=== PATIENT | male | born 1960 | race Caucasian/White ===

== ENCOUNTER 2017-12-30 20:02 | Emergency (ER) | payer MEDICAID ==
[~2017-12-30] VITALS: Ht 170.2 cm; Wt 93.0 kg
[2017-12-30 20:55] LABS: BASOPHILS ABSOLUTE AUTO 0.03 K/mm3 (0.00-0.23); BASOPHILS PERCENT AUTO 0 % (0-2); EOSINOPHILS ABSOLUTE AUTO 0.01 K/mm3 (0.00-0.68); EOSINOPHILS PERCENT AUTO 0 % (0-6); Hematocrit 46.7 % (37.0-53.0); Hemoglobin 16.2 g/dL (13.5-17.5); IMMATURE GRAN ABSOLUTE AUTO 0.04 K/mm3 (0.00-0.10); IMMATURE GRAN PERCENT AUTO 0 % (0-1); LYMPHOCYTES PERCENT AUTO 12 % (21-46); MONOCYTES ABSOLUTE AUTO 0.39 K/mm3 (0.16-1.47); MONOCYTES PERCENT AUTO 3 % (4-13); Mean Corpuscular HGB 32.3 pg (26.0-34.0); Mean Corpuscular HGB Conc 34.7 g/dL (31.5-36.5); Mean Corpuscular Volume 93 fL (80-100); Mean Platelet Volume 9.4 fL (9.1-12.4); NEUTROPHILS ABSOLUTE AUTO 10.32 K/mm3 (1.96-9.15); NEUTROPHILS PERCENT AUTO 84 % (41-73); Platelet Count 290 K/mm3 (150-400); RDW Coefficient Variation 12.9 % (11.7-14.2); RDW Standard Deviation 43.9 fL (35.1-46.3); Red Blood Cell Count 5.01 M/mm3 (4.30-5.90); White Blood Cell Count 12.29 K/mm3 (4.00-11.30)
[2017-12-30 21:17] LABS: Alanine Aminotransfer (ALT/SGP 32 U/L (12-78); Albumin, Blood 4.3 g/dL (3.4-5.0); Albumin/Globulin Ratio 1.1 (0.8-1.8); Alk Phos 53 U/L (50-136); Anion Gap 13 mmol/L (6-16); Aspartate Aminotrans (AST/SGOT 22 U/L (12-37); Bilirubin, Total 0.4 mg/dL (0.1-1.0); Blood Urea Nitrogen 14 mg/dL (8-24); Bun/Creatinine Ratio 15.3 (12.0-20.0); CO2, Blood 23 mmol/L (21-32); Calcium, Blood 9.3 mg/dL (8.5-10.1); Chloride, Blood 107 mmol/L (98-108); Creatinine, Blood 0.91 mg/dL (0.60-1.20); Globulin, Blood 3.8 g/dL (2.2-4.0); Glomerular Filtration Rate >60 (60-); Glucose, Blood 87 mg/dL (70-99); Potassium, Blood 3.9 mmol/L (3.5-5.5); Sodium, Blood 143 mmol/L (136-145); Total Protein, Blood 8.1 g/dL (6.4-8.2)
[2017-12-30] MEDS ORDERED: LAMO100 PO (22:38)
[2017-12-30] MEDS ORDERED: AMIT25 PO (22:38)
[2017-12-30] MEDS ORDERED: HYDR1TAB94 PO (22:39)
[2017-12-30] MEDS ORDERED: PROM25 PO (23:28)
== END 2017-12-30 23:42 | disposition home or self-care (01) ==
LOC: ER 20:02
PROVIDERS: Physician Assistant
DX: R10.9 Unspecified abdominal pain (principal); Q61.01 Congenital single renal cyst; K76.0 Fatty (change of) liver, not elsewhere classified; Z87.442 Personal history of urinary calculi
CPT/HCPCS: 36415; 74176; 80053; 83690; 85025; 93005; 93010; 96361; 96374; 96375; 99284-25; J0780; J1630; J1885; J2405; J3010; J7030

== ENCOUNTER 2018-01-17 08:27 | Emergency (ER) | payer OTHER ==
[~2018-01-17] VITALS: Ht 172.7 cm; Wt 90.7 kg
[~2018-01-17 08:27] MED LIST: AMIT25 PO; HYDR1TAB94 PO; LAMO100 PO; PROM25 PO
[2018-01-17 09:20] LABS: BASOPHILS ABSOLUTE AUTO 0.06 K/mm3 (0.00-0.23); BASOPHILS PERCENT AUTO 0 % (0-2); EOSINOPHILS ABSOLUTE AUTO 0.08 K/mm3 (0.00-0.68); EOSINOPHILS PERCENT AUTO 1 % (0-6); Hematocrit 49.4 % (37.0-53.0); Hemoglobin 17.1 g/dL (13.5-17.5); IMMATURE GRAN ABSOLUTE AUTO 0.03 K/mm3 (0.00-0.10); IMMATURE GRAN PERCENT AUTO 0 % (0-1); LYMPHOCYTES ABSOLUTE AUTO 2.38 K/mm3 (0.84-5.20); LYMPHOCYTES PERCENT AUTO 16 % (21-46); MONOCYTES PERCENT AUTO 7 % (4-13); Mean Corpuscular HGB 31.7 pg (26.0-34.0); Mean Corpuscular HGB Conc 34.6 g/dL (31.5-36.5); Mean Corpuscular Volume 92 fL (80-100); Mean Platelet Volume 9.5 fL (9.1-12.4); NEUTROPHILS ABSOLUTE AUTO 11.58 K/mm3 (1.96-9.15); NEUTROPHILS PERCENT AUTO 77 % (41-73); Platelet Count 281 K/mm3 (150-400); RDW Coefficient Variation 12.3 % (11.7-14.2); RDW Standard Deviation 40.9 fL (35.1-46.3); White Blood Cell Count 15.13 K/mm3 (4.00-11.30)
[2018-01-17 09:33] LABS: Alanine Aminotransfer (ALT/SGP 25 U/L (12-78); Albumin, Blood 4.4 g/dL (3.4-5.0); Albumin/Globulin Ratio 1.1 (0.8-1.8); Alk Phos 59 U/L (50-136); Anion Gap 10 mmol/L (6-16); Aspartate Aminotrans (AST/SGOT 18 U/L (12-37); Bilirubin, Total 0.7 mg/dL (0.1-1.0); Blood Urea Nitrogen 11 mg/dL (8-24); Bun/Creatinine Ratio 11.8 (12.0-20.0); CO2, Blood 22 mmol/L (21-32); Calcium, Blood 9.6 mg/dL (8.5-10.1); Chloride, Blood 106 mmol/L (98-108); Creatinine, Blood 0.94 mg/dL (0.60-1.20); Globulin, Blood 4.1 g/dL (2.2-4.0); Glomerular Filtration Rate >60 (60-); Glucose, Blood 137 mg/dL (70-99); Potassium, Blood 3.8 mmol/L (3.5-5.5); Sodium, Blood 138 mmol/L (136-145); Total Protein, Blood 8.5 g/dL (6.4-8.2)
[2018-01-17 11:02] LABS: Source, Urine Clean Catch
[2018-01-17 11:04] LABS: Bilirubin, Urine Neg (Neg); Blood, Urine 1+ (Neg); Glucose Qualitative, Urine Neg (Neg); Ketones, Urine 2+ (Neg); Leukocyte Esterase, Urine Neg (Neg); Nitrite, Urine Neg (Neg); Protein, Urine 1+ (Neg); Urobilinogen, Urine NORM (Normal)
[2018-01-17 11:13] LABS: Color, Urine Yellow (P-Yellow)
[2018-01-17 11:14] LABS: Appearance, Urine Clear (Clear); Bacteria Rare /hpf; Hyaline Casts 0-2 /lpf (0-2); Mucus Mod (0-Heavy); Squamous Epithelial Cells Few /hpf (Few)
[2018-01-17 11:15] LABS: U Amphetamine Screen Not Detected; U Barbituate Screen Not Detected; U Benzodiazapine Screen Not Detected; U Buprenorphine Screen Not Detected; U Cannabinoids Screen DETECTED; U Cocaine Screen Not Detected; U Methadone Screen Not Detected; U Methamphetamine Screen Not Detected; U Opiates Screen DETECTED; U Oxycodone Screen DETECTED; U Phencyclidine Screen Not Detected; U Propoxyphene Screen Not Detected
== END 2018-01-17 12:15 | disposition home or self-care (01) ==
LOC: ER 08:27
PROVIDERS: Emergency Medicine
DX: R10.9 Unspecified abdominal pain (principal); R11.10 Vomiting, unspecified; Z79.899 Other long term (current) drug therapy; Z87.442 Personal history of urinary calculi; Z87.891 Personal history of nicotine dependence
CPT/HCPCS: 36415; 80053; 81001; 83690; 85025; 96361; 96374; 96375; 99284-25; J1200; J1630; J1885; J2405; J7030

== ENCOUNTER 2018-01-24 05:02 | Emergency (ER) | payer OTHER ==
[~2018-01-24] VITALS: Ht 172.7 cm; Wt 90.7 kg
[2018-01-24] MEDS ORDERED: VALA500 PO (05:20)
[2018-01-24] MEDS ORDERED: Lamictal25 MG PO (06:20)
== END 2018-01-24 06:52 | disposition home or self-care (01) ==
LOC: ER 05:02
DX: K31.89 Other diseases of stomach and duodenum (principal); R11.2 Nausea with vomiting, unspecified; G40.909 Epilepsy, unspecified, not intractable, without status epilepticus; I10 Essential (primary) hypertension; Z88.8 Allergy status to other drugs, medicaments and biological substances; Z79.899 Other long term (current) drug therapy; Z87.891 Personal history of nicotine dependence; Z87.442 Personal history of urinary calculi
CPT/HCPCS: 36415; 96374; 96375; 99284-25; J1200; J1630

== ENCOUNTER 2018-05-20 15:56 | Emergency (ER) | payer OTHER ==
[~2018-05-20] VITALS: Ht 172.7 cm; Wt 81.7 kg
[~2018-05-20 15:56] MED LIST changes: +Lamictal25 MG PO; +VALA500 PO
[2018-05-20] MEDS ORDERED: PROP10 PO (17:02)
[2018-05-20] MEDS ORDERED: LISI20 (17:02)
[2018-05-20 17:13] LABS: BASOPHILS ABSOLUTE AUTO 0.05 K/mm3 (0.00-0.23); BASOPHILS PERCENT AUTO 0 % (0-2); EOSINOPHILS ABSOLUTE AUTO 0.22 K/mm3 (0.00-0.68); EOSINOPHILS PERCENT AUTO 1 % (0-6); Hematocrit 50.3 % (37.0-53.0); IMMATURE GRAN ABSOLUTE AUTO 0.08 K/mm3 (0.00-0.10); IMMATURE GRAN PERCENT AUTO 1 % (0-1); LYMPHOCYTES ABSOLUTE AUTO 2.44 K/mm3 (0.84-5.20); LYMPHOCYTES PERCENT AUTO 15 % (21-46); MONOCYTES ABSOLUTE AUTO 0.82 K/mm3 (0.16-1.47); MONOCYTES PERCENT AUTO 5 % (4-13); Mean Corpuscular HGB Conc 33.8 g/dL (31.5-36.5); Mean Corpuscular Volume 95 fL (80-100); Mean Platelet Volume 9.3 fL (9.1-12.4); NEUTROPHILS ABSOLUTE AUTO 12.82 K/mm3 (1.96-9.15); NEUTROPHILS PERCENT AUTO 78 % (41-73); Platelet Count 258 K/mm3 (150-400); RDW Coefficient Variation 12.7 % (11.7-14.2); RDW Standard Deviation 44.2 fL (35.1-46.3); Red Blood Cell Count 5.32 M/mm3 (4.30-5.90); White Blood Cell Count 16.43 K/mm3 (4.00-11.30)
[2018-05-20 17:35] LABS: Alanine Aminotransfer (ALT/SGP 30 U/L (12-78); Albumin, Blood 4.4 g/dL (3.4-5.0); Albumin/Globulin Ratio 1.1 (0.8-1.8); Alk Phos 55 U/L (50-136); Anion Gap 11 mmol/L (6-16); Aspartate Aminotrans (AST/SGOT 21 U/L (12-37); Bilirubin, Total 0.8 mg/dL (0.1-1.0); Blood Urea Nitrogen 24 mg/dL (8-24); Bun/Creatinine Ratio 20.9 (12.0-20.0); CO2, Blood 22 mmol/L (21-32); Calcium, Blood 9.7 mg/dL (8.5-10.1); Chloride, Blood 103 mmol/L (98-108); Creatinine, Blood 1.15 mg/dL (0.60-1.20); Globulin, Blood 4.1 g/dL (2.2-4.0); Glomerular Filtration Rate >60 (60-); Glucose, Blood 119 mg/dL (70-99); Potassium, Blood 4.2 mmol/L (3.5-5.5); Sodium, Blood 136 mmol/L (136-145); Total Protein, Blood 8.5 g/dL (6.4-8.2); Troponin I <0.015 ng/mL (0.000-0.040)
[2018-05-20 19:29] LABS: Source, Urine Clean Catch
[2018-05-20 19:32] LABS: Bilirubin, Urine Neg (Neg); Blood, Urine Neg (Neg); Glucose Qualitative, Urine Neg (Neg); Ketones, Urine 4+ (Neg); Leukocyte Esterase, Urine 1+ (Neg); Nitrite, Urine Neg (Neg); Protein, Urine 2+ (Neg); Urobilinogen, Urine NORM (Normal)
[2018-05-20 19:37] LABS: Appearance, Urine Clear (Clear); Color, Urine Yellow (P-Yellow)
[2018-05-20 19:38] LABS: Red Blood Cells, Urine 0-2 /hpf (0-2)
[2018-05-20 19:39] LABS: Bacteria Many /hpf; Mucus Mod (0-Heavy); Squamous Epithelial Cells Not Seen /hpf (Few)
[2018-05-20 19:42] LABS: Calcium Oxalate Crystals Few /hpf
[2018-05-20] MEDS ORDERED: CEFP200 PO (20:07)
[2018-05-20] MEDS ORDERED: Norco 5-325 Ta1 EACH PO (20:07)
[2018-05-20] MEDS ORDERED: Flomax0.4 MG PO (20:07)
== END 2018-05-20 20:34 | disposition home or self-care (01) ==
LOC: ER 15:56
PROVIDERS: Physician Assistant
DX: N20.0 Calculus of kidney (principal); N12 Tubulo-interstitial nephritis, not specified as acute or chronic; G40.909 Epilepsy, unspecified, not intractable, without status epilepticus; G43.909 Migraine, unspecified, not intractable, without status migrainosus; I10 Essential (primary) hypertension; Z87.442 Personal history of urinary calculi; Z87.891 Personal history of nicotine dependence; Z79.899 Other long term (current) drug therapy
CPT/HCPCS: 36415; 71046; 74176; 80053; 81001; 83690; 84484; 85025; 87086; 93005; 93010; 96361; 96365; 96375; 99285-25; J0696; J1170; J1885; J2060; J7030

== ENCOUNTER 2018-05-22 18:13 | Emergency (ER) | payer OTHER ==
[~2018-05-22] VITALS: Ht 172.7 cm; Wt 81.7 kg
[~2018-05-22 18:13] MED LIST changes: +CEFP200 PO; +Flomax0.4 MG PO; +LISI20; +Norco 5-325 Ta1 EACH PO; +PROP10 PO
[2018-05-22 18:35] LABS: BASOPHILS ABSOLUTE AUTO 0.04 K/mm3 (0.00-0.23); BASOPHILS PERCENT AUTO 0 % (0-2); EOSINOPHILS ABSOLUTE AUTO 0.14 K/mm3 (0.00-0.68); EOSINOPHILS PERCENT AUTO 1 % (0-6); Hematocrit 43.8 % (37.0-53.0); IMMATURE GRAN ABSOLUTE AUTO 0.03 K/mm3 (0.00-0.10); IMMATURE GRAN PERCENT AUTO 0 % (0-1); LYMPHOCYTES ABSOLUTE AUTO 1.82 K/mm3 (0.84-5.20); LYMPHOCYTES PERCENT AUTO 18 % (21-46); MONOCYTES PERCENT AUTO 6 % (4-13); Mean Corpuscular HGB 32.5 pg (26.0-34.0); Mean Corpuscular HGB Conc 34.2 g/dL (31.5-36.5); Mean Corpuscular Volume 95 fL (80-100); Mean Platelet Volume 9.4 fL (9.1-12.4); NEUTROPHILS ABSOLUTE AUTO 7.61 K/mm3 (1.96-9.15); NEUTROPHILS PERCENT AUTO 74 % (41-73); Platelet Count 223 K/mm3 (150-400); RDW Coefficient Variation 12.6 % (11.7-14.2); RDW Standard Deviation 43.6 fL (35.1-46.3); Red Blood Cell Count 4.61 M/mm3 (4.30-5.90); White Blood Cell Count 10.24 K/mm3 (4.00-11.30)
[2018-05-22 18:46] LABS: Alanine Aminotransfer (ALT/SGP 30 U/L (12-78); Albumin, Blood 3.9 g/dL (3.4-5.0); Albumin/Globulin Ratio 1.1 (0.8-1.8); Alk Phos 46 U/L (50-136); Anion Gap 8 mmol/L (6-16); Aspartate Aminotrans (AST/SGOT 30 U/L (12-37); Bilirubin, Total 0.6 mg/dL (0.1-1.0); Blood Urea Nitrogen 22 mg/dL (8-24); Bun/Creatinine Ratio 19.6 (12.0-20.0); CO2, Blood 26 mmol/L (21-32); Calcium, Blood 9.3 mg/dL (8.5-10.1); Chloride, Blood 104 mmol/L (98-108); Creatinine, Blood 1.12 mg/dL (0.60-1.20); Globulin, Blood 3.6 g/dL (2.2-4.0); Glomerular Filtration Rate >60 (60-); Glucose, Blood 107 mg/dL (70-99); Potassium, Blood 3.7 mmol/L (3.5-5.5); Sodium, Blood 138 mmol/L (136-145); Total Protein, Blood 7.5 g/dL (6.4-8.2)
[2018-05-22 19:38] LABS: Source, Urine Clean Catch
[2018-05-22 19:41] LABS: Bilirubin, Urine Neg (Neg); Blood, Urine Neg (Neg); Glucose Qualitative, Urine Neg (Neg); Ketones, Urine 2+ (Neg); Leukocyte Esterase, Urine Neg (Neg); Nitrite, Urine Neg (Neg); Protein, Urine Neg (Neg); Urobilinogen, Urine NORM (Normal)
[2018-05-22 19:42] LABS: Appearance, Urine Clear (Clear); Color, Urine Yellow (P-Yellow)
[2018-05-22 20:01] LABS: U Amphetamine Screen Not Detected; U Barbituate Screen Not Detected; U Benzodiazapine Screen Not Detected; U Buprenorphine Screen Not Detected; U Cannabinoids Screen DETECTED; U Cocaine Screen Not Detected; U Methadone Screen Not Detected; U Methamphetamine Screen Not Detected; U Opiates Screen Not Detected; U Oxycodone Screen Not Detected; U Phencyclidine Screen Not Detected; U Propoxyphene Screen Not Detected
== END 2018-05-22 21:07 | disposition home or self-care (01) ==
LOC: ER 18:13
PROVIDERS: Emergency Medicine
DX: R10.9 Unspecified abdominal pain (principal); F12.20 Cannabis dependence, uncomplicated; Z88.8 Allergy status to other drugs, medicaments and biological substances; Z79.899 Other long term (current) drug therapy; G43.909 Migraine, unspecified, not intractable, without status migrainosus; I10 Essential (primary) hypertension; Z87.442 Personal history of urinary calculi; Z87.891 Personal history of nicotine dependence
CPT/HCPCS: 80053; 81003; 83690; 85025; 96361; 96374; 96375; 99284-25; J1170; J1885; J2550; J7030

== ENCOUNTER 2018-07-14 14:54 | Emergency (ER) | payer OTHER ==
[~2018-07-14] VITALS: Ht 172.7 cm; Wt 83.9 kg
[2018-07-14 15:13] LABS: BASOPHILS ABSOLUTE AUTO 0.04 K/mm3 (0.00-0.23); BASOPHILS PERCENT AUTO 0 % (0-2); EOSINOPHILS ABSOLUTE AUTO 0.02 K/mm3 (0.00-0.68); EOSINOPHILS PERCENT AUTO 0 % (0-6); Hematocrit 44.6 % (37.0-53.0); Hemoglobin 15.2 g/dL (13.5-17.5); IMMATURE GRAN ABSOLUTE AUTO 0.04 K/mm3 (0.00-0.10); IMMATURE GRAN PERCENT AUTO 0 % (0-1); LYMPHOCYTES ABSOLUTE AUTO 1.07 K/mm3 (0.84-5.20); LYMPHOCYTES PERCENT AUTO 11 % (21-46); MONOCYTES ABSOLUTE AUTO 0.42 K/mm3 (0.16-1.47); MONOCYTES PERCENT AUTO 4 % (4-13); Mean Corpuscular HGB Conc 34.1 g/dL (31.5-36.5); Mean Corpuscular Volume 97 fL (80-100); Mean Platelet Volume 9.1 fL (9.1-12.4); NEUTROPHILS ABSOLUTE AUTO 8.32 K/mm3 (1.96-9.15); NEUTROPHILS PERCENT AUTO 84 % (41-73); Platelet Count 224 K/mm3 (150-400); RDW Coefficient Variation 12.6 % (11.7-14.2); RDW Standard Deviation 45.1 fL (35.1-46.3); Red Blood Cell Count 4.61 M/mm3 (4.30-5.90); White Blood Cell Count 9.91 K/mm3 (4.00-11.30)
[2018-07-14] MEDS ORDERED: Ventolin/Prove6.7 GM INH (15:19)
[2018-07-14] MEDS ORDERED: SILDENAFIL20 MG PO (15:19)
[2018-07-14 15:42] LABS: Alanine Aminotransfer (ALT/SGP 31 U/L (12-78); Albumin, Blood 4.1 g/dL (3.4-5.0); Albumin/Globulin Ratio 1.1 (0.8-1.8); Alk Phos 55 U/L (50-136); Anion Gap 6 mmol/L (6-16); Aspartate Aminotrans (AST/SGOT 24 U/L (12-37); Bilirubin, Total 0.3 mg/dL (0.1-1.0); Blood Urea Nitrogen 15 mg/dL (8-24); Bun/Creatinine Ratio 17.5 (12.0-20.0); CO2, Blood 26 mmol/L (21-32); Chloride, Blood 107 mmol/L (98-108); Creatinine, Blood 0.86 mg/dL (0.60-1.20); Globulin, Blood 3.7 g/dL (2.2-4.0); Glomerular Filtration Rate >60 (60-); Glucose, Blood 110 mg/dL (70-99); Potassium, Blood 4.3 mmol/L (3.5-5.5); Sodium, Blood 139 mmol/L (136-145); Total Protein, Blood 7.8 g/dL (6.4-8.2)
[2018-07-14 17:46] LABS: Appearance, Urine Clear (Clear); Bilirubin, Urine Neg (Neg); Blood, Urine 2+ (Neg); Color, Urine Yellow (P-Yellow); Glucose Qualitative, Urine Neg (Neg); Ketones, Urine 3+ (Neg); Leukocyte Esterase, Urine Neg (Neg); Nitrite, Urine Neg (Neg); Protein, Urine Neg (Neg); Urobilinogen, Urine NORM (Normal); pH, Urine 6.5 (5.0-8.0)
[2018-07-14 18:09] LABS: Squamous Epithelial Cells Rare /hpf (Few)
[2018-07-14 18:10] LABS: Bacteria Not Seen /hpf; White Blood Cells, Urine Not Seen /hpf (0-5)
[2018-07-14] MEDS ORDERED: COMPAZINE10 MG PO (18:22)
== END 2018-07-14 18:42 | disposition home or self-care (01) ==
LOC: ER 14:54
PROVIDERS: Emergency Medicine
DX: R10.9 Unspecified abdominal pain (principal); I10 Essential (primary) hypertension; G43.909 Migraine, unspecified, not intractable, without status migrainosus; Z87.442 Personal history of urinary calculi; Z87.891 Personal history of nicotine dependence
CPT/HCPCS: 36415; 80053; 81001; 83690; 85025; 96361; 96374; 96375; 99284-25; J1200; J1630; J1885; J7030

== ENCOUNTER 2018-08-03 04:33 | Emergency (ER) | payer OTHER ==
[~2018-08-03] VITALS: Ht 172.7 cm; Wt 86.2 kg
[~2018-08-03 04:33] MED LIST changes: +COMPAZINE10 MG PO; +SILDENAFIL20 MG PO; +Ventolin/Prove6.7 GM INH
[2018-08-03 05:06] LABS: BASOPHILS ABSOLUTE AUTO 0.05 K/mm3 (0.00-0.23); BASOPHILS PERCENT AUTO 1 % (0-2); EOSINOPHILS ABSOLUTE AUTO 0.18 K/mm3 (0.00-0.68); EOSINOPHILS PERCENT AUTO 2 % (0-6); Hematocrit 48.6 % (37.0-53.0); Hemoglobin 16.5 g/dL (13.5-17.5); IMMATURE GRAN ABSOLUTE AUTO 0.03 K/mm3 (0.00-0.10); IMMATURE GRAN PERCENT AUTO 0 % (0-1); LYMPHOCYTES PERCENT AUTO 22 % (21-46); MONOCYTES ABSOLUTE AUTO 0.56 K/mm3 (0.16-1.47); MONOCYTES PERCENT AUTO 6 % (4-13); Mean Corpuscular HGB 32.5 pg (26.0-34.0); Mean Corpuscular Volume 96 fL (80-100); Mean Platelet Volume 8.9 fL (9.1-12.4); NEUTROPHILS ABSOLUTE AUTO 6.83 K/mm3 (1.96-9.15); NEUTROPHILS PERCENT AUTO 69 % (41-73); Platelet Count 324 K/mm3 (150-400); RDW Coefficient Variation 12.2 % (11.7-14.2); RDW Standard Deviation 43.2 fL (35.1-46.3); Red Blood Cell Count 5.07 M/mm3 (4.30-5.90); White Blood Cell Count 9.85 K/mm3 (4.00-11.30)
[2018-08-03 05:26] LABS: Alanine Aminotransfer (ALT/SGP 29 U/L (12-78); Albumin, Blood 4.3 g/dL (3.4-5.0); Albumin/Globulin Ratio 1.2 (0.8-1.8); Alk Phos 57 U/L (50-136); Anion Gap 12 mmol/L (6-16); Aspartate Aminotrans (AST/SGOT 19 U/L (12-37); Bilirubin, Total 0.9 mg/dL (0.1-1.0); Blood Urea Nitrogen 20 mg/dL (8-24); Bun/Creatinine Ratio 23.4 (12.0-20.0); CO2, Blood 21 mmol/L (21-32); Calcium, Blood 9.5 mg/dL (8.5-10.1); Chloride, Blood 106 mmol/L (98-108); Creatinine, Blood 0.86 mg/dL (0.60-1.20); Globulin, Blood 3.7 g/dL (2.2-4.0); Glomerular Filtration Rate >60 (60-); Glucose, Blood 114 mg/dL (70-99); Potassium, Blood 4.1 mmol/L (3.5-5.5); Sodium, Blood 139 mmol/L (136-145)
[2018-08-03 06:25] LABS: Source, Urine Clean Catch
[2018-08-03 06:27] LABS: Bilirubin, Urine Neg (Neg); Blood, Urine 1+ (Neg); Glucose Qualitative, Urine Neg (Neg); Ketones, Urine Neg (Neg); Leukocyte Esterase, Urine 1+ (Neg); Nitrite, Urine Neg (Neg); Protein, Urine Neg (Neg); Specific Gravity, Urine 1.015 (1.003-1.022); Urobilinogen, Urine NORM (Normal)
[2018-08-03 06:49] LABS: Appearance, Urine Clear (Clear); Color, Urine Yellow (P-Yellow)
[2018-08-03 06:51] LABS: Calcium Oxalate Crystals Many /hpf
[2018-08-03 06:52] LABS: Red Blood Cells, Urine 0-2 /hpf (0-2); Squamous Epithelial Cells Rare /hpf (Few)
[2018-08-03 06:53] LABS: Bacteria Rare /hpf
[2018-08-04] MEDS ORDERED: ONDA4ODT MM (11:38)
[2018-08-04] MEDS ORDERED: HYOS.125 SL (11:38)
== END 2018-08-03 06:38 | disposition left against medical advice (07) ==
LOC: ER 04:33
PROVIDERS: Emergency Medicine
DX: R10.9 Unspecified abdominal pain (principal); Z88.8 Allergy status to other drugs, medicaments and biological substances; Z79.899 Other long term (current) drug therapy; G43.909 Migraine, unspecified, not intractable, without status migrainosus; I10 Essential (primary) hypertension; F31.9 Bipolar disorder, unspecified; Z87.891 Personal history of nicotine dependence
CPT/HCPCS: 74176; 80053; 81001; 85025; 87086; 96374; 96375; 99284-25; J1200; J1630; J1885; J2405

== ENCOUNTER 2018-08-04 07:52 | Emergency (ER) | payer OTHER ==
[~2018-08-04] VITALS: Ht 172.7 cm; Wt 83.9 kg
[2018-08-04 10:02] LABS: BASOPHILS ABSOLUTE AUTO 0.05 K/mm3 (0.00-0.23); BASOPHILS PERCENT AUTO 1 % (0-2); EOSINOPHILS ABSOLUTE AUTO 0.16 K/mm3 (0.00-0.68); EOSINOPHILS PERCENT AUTO 2 % (0-6); Hematocrit 46.9 % (37.0-53.0); Hemoglobin 15.8 g/dL (13.5-17.5); IMMATURE GRAN ABSOLUTE AUTO 0.02 K/mm3 (0.00-0.10); IMMATURE GRAN PERCENT AUTO 0 % (0-1); LYMPHOCYTES ABSOLUTE AUTO 1.62 K/mm3 (0.84-5.20); LYMPHOCYTES PERCENT AUTO 22 % (21-46); MONOCYTES ABSOLUTE AUTO 0.42 K/mm3 (0.16-1.47); MONOCYTES PERCENT AUTO 6 % (4-13); Mean Corpuscular HGB 32.4 pg (26.0-34.0); Mean Corpuscular HGB Conc 33.7 g/dL (31.5-36.5); Mean Corpuscular Volume 96 fL (80-100); Mean Platelet Volume 10.2 fL (9.1-12.4); NEUTROPHILS PERCENT AUTO 69 % (41-73); Platelet Count 280 K/mm3 (150-400); RDW Coefficient Variation 12.2 % (11.7-14.2); RDW Standard Deviation 43.3 fL (35.1-46.3); Red Blood Cell Count 4.87 M/mm3 (4.30-5.90); White Blood Cell Count 7.27 K/mm3 (4.00-11.30)
[2018-08-04 10:46] LABS: Anion Gap 6 mmol/L (6-16); Blood Urea Nitrogen 18 mg/dL (8-24); Bun/Creatinine Ratio 20.9 (12.0-20.0); CO2, Blood 26 mmol/L (21-32); Calcium, Blood 9.3 mg/dL (8.5-10.1); Chloride, Blood 106 mmol/L (98-108); Creatinine, Blood 0.86 mg/dL (0.60-1.20); Glomerular Filtration Rate >60 (60-); Glucose, Blood 104 mg/dL (70-99); Potassium, Blood 3.8 mmol/L (3.5-5.5); Sodium, Blood 138 mmol/L (136-145)
[2018-08-04] MEDS ORDERED: HYOS.125 SL (11:38)
[2018-08-04] MEDS ORDERED: ONDA4ODT MM (11:38)
== END 2018-08-04 12:06 | disposition home or self-care (01) ==
LOC: ER 07:52
PROVIDERS: Physician Assistant
DX: R10.9 Unspecified abdominal pain (principal); N23 Unspecified renal colic; G40.909 Epilepsy, unspecified, not intractable, without status epilepticus; G43.909 Migraine, unspecified, not intractable, without status migrainosus; I10 Essential (primary) hypertension; F31.9 Bipolar disorder, unspecified; Z87.442 Personal history of urinary calculi
CPT/HCPCS: 80048; 85025; 96361; 96374; 96375; 99284-25; J1885; J2405; J7120

== ENCOUNTER 2018-08-05 03:49 | Emergency (ER) | payer OTHER ==
[~2018-08-05] VITALS: Ht 172.7 cm; Wt 86.2 kg
[~2018-08-05 03:49] MED LIST changes: +HYOS.125 SL; +ONDA4ODT MM
[2018-08-05 04:19] LABS: BASOPHILS ABSOLUTE AUTO 0.04 K/mm3 (0.00-0.23); BASOPHILS PERCENT AUTO 0 % (0-2); EOSINOPHILS ABSOLUTE AUTO 0.16 K/mm3 (0.00-0.68); EOSINOPHILS PERCENT AUTO 2 % (0-6); Hematocrit 44.2 % (37.0-53.0); Hemoglobin 14.8 g/dL (13.5-17.5); IMMATURE GRAN ABSOLUTE AUTO 0.03 K/mm3 (0.00-0.10); IMMATURE GRAN PERCENT AUTO 0 % (0-1); LYMPHOCYTES ABSOLUTE AUTO 1.72 K/mm3 (0.84-5.20); LYMPHOCYTES PERCENT AUTO 16 % (21-46); MONOCYTES PERCENT AUTO 5 % (4-13); Mean Corpuscular HGB 32.7 pg (26.0-34.0); Mean Corpuscular HGB Conc 33.5 g/dL (31.5-36.5); Mean Corpuscular Volume 98 fL (80-100); Mean Platelet Volume 8.9 fL (9.1-12.4); NEUTROPHILS ABSOLUTE AUTO 8.48 K/mm3 (1.96-9.15); NEUTROPHILS PERCENT AUTO 78 % (41-73); Platelet Count 297 K/mm3 (150-400); RDW Standard Deviation 43.7 fL (35.1-46.3); Red Blood Cell Count 4.52 M/mm3 (4.30-5.90); White Blood Cell Count 10.93 K/mm3 (4.00-11.30)
[2018-08-05 04:36] LABS: Alanine Aminotransfer (ALT/SGP 25 U/L (12-78); Albumin/Globulin Ratio 1.2 (0.8-1.8); Alk Phos 49 U/L (50-136); Anion Gap 12 mmol/L (6-16); Aspartate Aminotrans (AST/SGOT 18 U/L (12-37); Bilirubin, Total 0.6 mg/dL (0.1-1.0); Blood Urea Nitrogen 20 mg/dL (8-24); Bun/Creatinine Ratio 20.7 (12.0-20.0); CO2, Blood 24 mmol/L (21-32); Calcium, Blood 9.4 mg/dL (8.5-10.1); Chloride, Blood 106 mmol/L (98-108); Creatinine, Blood 0.96 mg/dL (0.60-1.20); Globulin, Blood 3.3 g/dL (2.2-4.0); Glomerular Filtration Rate >60 (60-); Glucose, Blood 100 mg/dL (70-99); Potassium, Blood 3.7 mmol/L (3.5-5.5); Sodium, Blood 142 mmol/L (136-145); Total Protein, Blood 7.3 g/dL (6.4-8.2)
== END 2018-08-05 05:10 | disposition home or self-care (01) ==
LOC: ER 03:49
PROVIDERS: Emergency Medicine
DX: R10.9 Unspecified abdominal pain (principal); I10 Essential (primary) hypertension; Z79.899 Other long term (current) drug therapy
CPT/HCPCS: 80053; 85025; 99284

== ENCOUNTER 2019-01-30 20:26 | Emergency (ER) | payer MEDICARE, OTHER ==
[~2019-01-30] VITALS: Ht 172.7 cm; Wt 88.5 kg
[~2019-01-30 20:26] MED LIST changes: +AMIT10 PO; -AMIT25 PO; -LISI20; +LISI20 PO
[2019-01-30] MEDS ORDERED: LAMO25 PO (20:55)
[2019-01-30] MEDS ORDERED: Flomax0.4 MG PO (20:56)
[2019-01-30] MEDS ORDERED: VITAMIN D250000 UNIT PO (20:58)
[2019-01-30 21:02] LABS: BASOPHILS ABSOLUTE AUTO 0.04 K/mm3 (0.00-0.23); BASOPHILS PERCENT AUTO 0 % (0-2); EOSINOPHILS PERCENT AUTO 0 % (0-6); Hemoglobin 17.3 g/dL (13.5-17.5); IMMATURE GRAN ABSOLUTE AUTO 0.04 K/mm3 (0.00-0.10); IMMATURE GRAN PERCENT AUTO 0 % (0-1); LYMPHOCYTES ABSOLUTE AUTO 0.88 K/mm3 (0.84-5.20); LYMPHOCYTES PERCENT AUTO 8 % (21-46); MONOCYTES PERCENT AUTO 3 % (4-13); Mean Corpuscular HGB 32.4 pg (26.0-34.0); Mean Corpuscular HGB Conc 33.9 g/dL (31.5-36.5); Mean Corpuscular Volume 96 fL (80-100); Mean Platelet Volume 9.3 fL (9.1-12.4); NEUTROPHILS ABSOLUTE AUTO 9.76 K/mm3 (1.96-9.15); NEUTROPHILS PERCENT AUTO 89 % (41-73); Platelet Count 236 K/mm3 (150-400); RDW Standard Deviation 42.6 fL (35.1-46.3); Red Blood Cell Count 5.34 M/mm3 (4.30-5.90); White Blood Cell Count 11.02 K/mm3 (4.00-11.30)
[2019-01-30 21:06] LABS: Alanine Aminotransfer (ALT/SGP 30 U/L (12-78); Albumin, Blood 4.4 g/dL (3.4-5.0); Albumin/Globulin Ratio 1.2 (0.8-1.8); Alk Phos 58 U/L (50-136); Anion Gap 13 mmol/L (6-16); Aspartate Aminotrans (AST/SGOT 26 U/L (12-37); Bilirubin, Total 0.5 mg/dL (0.1-1.0); Blood Urea Nitrogen 18 mg/dL (8-24); Bun/Creatinine Ratio 21.4 (12.0-20.0); CO2, Blood 22 mmol/L (21-32); Calcium, Blood 9.3 mg/dL (8.5-10.1); Chloride, Blood 107 mmol/L (98-108); Creatinine, Blood 0.84 mg/dL (0.60-1.20); Globulin, Blood 3.8 g/dL (2.2-4.0); Glomerular Filtration Rate >60 (60-); Glucose, Blood 113 mg/dL (70-99); Potassium, Blood 3.8 mmol/L (3.5-5.5); Sodium, Blood 142 mmol/L (136-145); Total Protein, Blood 8.2 g/dL (6.4-8.2)
[2019-01-30 21:11] LABS: Source, Urine Clean Catch
[2019-01-30 21:14] LABS: Appearance, Urine Clear (Clear); Bilirubin, Urine Neg (Neg); Blood, Urine 1+ (Neg); Color, Urine Amber (P-Yellow); Glucose Qualitative, Urine Neg (Neg); Ketones, Urine 4+ (Neg); Leukocyte Esterase, Urine 1+ (Neg); Nitrite, Urine Neg (Neg); Protein, Urine 2+ (Neg); Urobilinogen, Urine NORM (Normal)
[2019-01-30 21:22] LABS: Bacteria Mod /hpf; Mucus Light (0-Heavy); Squamous Epithelial Cells Rare /hpf (Few)
[2019-01-30] MEDS ORDERED: PROM25 PO (21:33)
[2019-01-30] MEDS ORDERED: Zofran4 MG PO (21:33)
== END 2019-01-30 22:20 | disposition home or self-care (01) ==
LOC: ER 20:26
PROVIDERS: Emergency Medicine
DX: R10.32 Left lower quadrant pain (principal); R11.2 Nausea with vomiting, unspecified; I10 Essential (primary) hypertension; Z87.820 Personal history of traumatic brain injury; Z87.442 Personal history of urinary calculi; F31.9 Bipolar disorder, unspecified; Z87.891 Personal history of nicotine dependence; Z88.1 Allergy status to other antibiotic agents; Z88.8 Allergy status to other drugs, medicaments and biological substances; Z79.899 Other long term (current) drug therapy; X58.XXXA Exposure to other specified factors, initial encounter
CPT/HCPCS: 80053; 81001; 83690; 85025; 87086; 96361; 96374; 96375; 99284-25; J1200; J1630; J7030

== ENCOUNTER 2020-02-28 22:38 | Emergency (ER) | payer MEDICARE ==
[~2020-02-28] VITALS: Ht 172.7 cm; Wt 90.7 kg
[~2020-02-28 22:38] MED LIST changes: +LAMO25 PO; +VITAMIN D250000 UNIT PO; +Zofran4 MG PO
[2020-02-28 23:14] LABS: BASOPHILS ABSOLUTE AUTO 0.03 K/mm3 (0.00-0.23); BASOPHILS PERCENT AUTO 0 % (0-2); EOSINOPHILS ABSOLUTE AUTO 0.02 K/mm3 (0.00-0.68); EOSINOPHILS PERCENT AUTO 0 % (0-6); Hemoglobin 16.3 g/dL (13.5-17.5); IMMATURE GRAN ABSOLUTE AUTO 0.03 K/mm3 (0.00-0.10); IMMATURE GRAN PERCENT AUTO 0 % (0-1); LYMPHOCYTES ABSOLUTE AUTO 1.31 K/mm3 (0.84-5.20); LYMPHOCYTES PERCENT AUTO 10 % (21-46); MONOCYTES ABSOLUTE AUTO 0.39 K/mm3 (0.16-1.47); MONOCYTES PERCENT AUTO 3 % (4-13); Mean Corpuscular HGB 32.3 pg (26.0-34.0); Mean Corpuscular Volume 95 fL (80-100); Mean Platelet Volume 9.2 fL (9.1-12.4); NEUTROPHILS ABSOLUTE AUTO 11.01 K/mm3 (1.96-9.15); NEUTROPHILS PERCENT AUTO 86 % (41-73); Platelet Count 274 K/mm3 (150-400); RDW Coefficient Variation 11.9 % (11.7-14.2); RDW Standard Deviation 41.4 fL (35.1-46.3); Red Blood Cell Count 5.05 M/mm3 (4.30-5.90); White Blood Cell Count 12.79 K/mm3 (4.00-11.30)
[2020-02-28 23:32] LABS: Alanine Aminotransfer (ALT/SGP 34 U/L (12-78); Albumin, Blood 4.4 g/dL (3.4-5.0); Albumin/Globulin Ratio 1.3 (0.8-1.8); Alk Phos 59 U/L (50-136); Anion Gap 6 mmol/L (6-16); Aspartate Aminotrans (AST/SGOT 18 U/L (12-37); Bilirubin, Total 0.7 mg/dL (0.1-1.0); Blood Urea Nitrogen 17 mg/dL (8-24); Bun/Creatinine Ratio 16.2 (12.0-20.0); CO2, Blood 27 mmol/L (21-32); Chloride, Blood 107 mmol/L (98-108); Creatinine, Blood 1.05 mg/dL (0.60-1.20); Globulin, Blood 3.5 g/dL (2.2-4.0); Glomerular Filtration Rate >60 (60-); Glucose, Blood 119 mg/dL (70-99); Potassium, Blood 4.1 mmol/L (3.5-5.5); Sodium, Blood 140 mmol/L (136-145); Total Protein, Blood 7.9 g/dL (6.4-8.2)
[2020-02-29] MEDS ORDERED: METO10 PO (00:45)
== END 2020-02-29 01:20 | disposition home or self-care (01) ==
LOC: ER 22:38
PROVIDERS: Emergency Medicine
DX: R10.32 Left lower quadrant pain (principal); R11.15 Cyclical vomiting syndrome unrelated to migraine; M54.9 Dorsalgia, unspecified; G89.29 Other chronic pain; G40.909 Epilepsy, unspecified, not intractable, without status epilepticus; I10 Essential (primary) hypertension; F31.9 Bipolar disorder, unspecified; Z88.0 Allergy status to penicillin; Z88.8 Allergy status to other drugs, medicaments and biological substances; Z79.899 Other long term (current) drug therapy; Z87.442 Personal history of urinary calculi; Z87.891 Personal history of nicotine dependence; Z98.890 Other specified postprocedural states
CPT/HCPCS: 74176; 80053; 83690; 85025; 96361; 96374; 96375; 99284-25; J2405; J2765; J3010; J7030

== ENCOUNTER 2020-07-29 00:07 | Emergency (ER) | payer MEDICARE ==
[~2020-07-29] VITALS: Ht 172.7 cm; Wt 90.7 kg
[~2020-07-29 00:07] MED LIST changes: +METO10 PO
[2020-07-29 00:41] LABS: BASOPHILS ABSOLUTE AUTO 0.04 K/mm3 (0.00-0.23); BASOPHILS PERCENT AUTO 0 % (0-2); EOSINOPHILS ABSOLUTE AUTO 0.01 K/mm3 (0.00-0.68); EOSINOPHILS PERCENT AUTO 0 % (0-6); Hematocrit 46.7 % (37.0-53.0); Hemoglobin 16.2 g/dL (13.5-17.5); IMMATURE GRAN ABSOLUTE AUTO 0.04 K/mm3 (0.00-0.10); IMMATURE GRAN PERCENT AUTO 0 % (0-1); LYMPHOCYTES ABSOLUTE AUTO 0.97 K/mm3 (0.84-5.20); LYMPHOCYTES PERCENT AUTO 7 % (21-46); MONOCYTES PERCENT AUTO 3 % (4-13); Mean Corpuscular HGB 32.7 pg (26.0-34.0); Mean Corpuscular HGB Conc 34.7 g/dL (31.5-36.5); Mean Corpuscular Volume 94 fL (80-100); Mean Platelet Volume 8.9 fL (9.1-12.4); NEUTROPHILS PERCENT AUTO 90 % (41-73); Platelet Count 244 K/mm3 (150-400); RDW Coefficient Variation 12.7 % (11.7-14.2); Red Blood Cell Count 4.95 M/mm3 (4.30-5.90); White Blood Cell Count 14.56 K/mm3 (4.00-11.30)
[2020-07-29 01:13] LABS: Alanine Aminotransfer (ALT/SGP 29 U/L (12-78); Albumin/Globulin Ratio 1.1 (0.8-1.8); Alk Phos 53 U/L (50-136); Anion Gap 9 mmol/L (6-16); Aspartate Aminotrans (AST/SGOT 18 U/L (12-37); Bilirubin, Total 0.5 mg/dL (0.1-1.0); Blood Urea Nitrogen 15 mg/dL (8-24); Bun/Creatinine Ratio 17.6 (12.0-20.0); CO2, Blood 25 mmol/L (21-32); Calcium, Blood 9.3 mg/dL (8.5-10.1); Chloride, Blood 108 mmol/L (98-108); Creatinine, Blood 0.85 mg/dL (0.60-1.20); Globulin, Blood 3.8 g/dL (2.2-4.0); Glomerular Filtration Rate >60 (60-); Glucose, Blood 91 mg/dL (70-99); Potassium, Blood 3.6 mmol/L (3.5-5.5); Sodium, Blood 142 mmol/L (136-145); Total Protein, Blood 7.8 g/dL (6.4-8.2)
== END 2020-07-29 03:10 | disposition home or self-care (01) ==
LOC: ER 00:07
PROVIDERS: Student in an Organized Health Care Education/Training Program
DX: R10.12 Left upper quadrant pain (principal); Z88.0 Allergy status to penicillin; Z88.8 Allergy status to other drugs, medicaments and biological substances; Z79.899 Other long term (current) drug therapy
CPT/HCPCS: 74176; 80053; 83690; 85025; 93005; 93010; 96361; 96372-59; 96374; 96375; 99284-25; J1790; J1885; J2405; J7030

== ENCOUNTER 2020-07-30 07:36 | Emergency (ER) | payer MEDICARE ==
[~2020-07-30] VITALS: Ht 172.7 cm; Wt 90.7 kg
[2020-07-30 08:52] LABS: BASOPHILS ABSOLUTE AUTO 0.05 K/mm3 (0.00-0.23); BASOPHILS PERCENT AUTO 1 % (0-2); EOSINOPHILS ABSOLUTE AUTO 0.14 K/mm3 (0.00-0.68); EOSINOPHILS PERCENT AUTO 1 % (0-6); Hematocrit 48.3 % (37.0-53.0); Hemoglobin 16.5 g/dL (13.5-17.5); IMMATURE GRAN ABSOLUTE AUTO 0.04 K/mm3 (0.00-0.10); IMMATURE GRAN PERCENT AUTO 0 % (0-1); LYMPHOCYTES ABSOLUTE AUTO 1.68 K/mm3 (0.84-5.20); LYMPHOCYTES PERCENT AUTO 16 % (21-46); MONOCYTES ABSOLUTE AUTO 0.65 K/mm3 (0.16-1.47); MONOCYTES PERCENT AUTO 6 % (4-13); Mean Corpuscular HGB 32.7 pg (26.0-34.0); Mean Corpuscular HGB Conc 34.2 g/dL (31.5-36.5); Mean Corpuscular Volume 96 fL (80-100); Mean Platelet Volume 9.6 fL (9.1-12.4); NEUTROPHILS ABSOLUTE AUTO 7.83 K/mm3 (1.96-9.15); NEUTROPHILS PERCENT AUTO 75 % (41-73); Platelet Count 247 K/mm3 (150-400); RDW Coefficient Variation 12.9 % (11.7-14.2); RDW Standard Deviation 45.7 fL (35.1-46.3); Red Blood Cell Count 5.05 M/mm3 (4.30-5.90); White Blood Cell Count 10.39 K/mm3 (4.00-11.30)
[2020-07-30 08:58] LABS: Source, Urine Clean Catch
[2020-07-30 09:01] LABS: International Normalized Ratio 0.99; Prothrombin Time Results 10.6 Sec (9.7-11.5)
[2020-07-30 09:07] LABS: Alanine Aminotransfer (ALT/SGP 29 U/L (12-78); Albumin/Globulin Ratio 1.2 (0.8-1.8); Alk Phos 50 U/L (50-136); Anion Gap 7 mmol/L (6-16); Aspartate Aminotrans (AST/SGOT 23 U/L (12-37); Bilirubin, Total 0.9 mg/dL (0.1-1.0); Blood Urea Nitrogen 18 mg/dL (8-24); Bun/Creatinine Ratio 19.9 (12.0-20.0); CO2, Blood 26 mmol/L (21-32); Calcium, Blood 9.3 mg/dL (8.5-10.1); Chloride, Blood 107 mmol/L (98-108); Globulin, Blood 3.4 g/dL (2.2-4.0); Glomerular Filtration Rate >60 (60-); Glucose, Blood 119 mg/dL (70-99); Potassium, Blood 3.6 mmol/L (3.5-5.5); Sodium, Blood 140 mmol/L (136-145); Total Protein, Blood 7.4 g/dL (6.4-8.2)
[2020-07-30 09:09] LABS: Bilirubin, Urine Neg (Neg); Blood, Urine 2+ (Neg); Glucose Qualitative, Urine Neg (Neg); Ketones, Urine 2+ (Neg); Leukocyte Esterase, Urine 1+ (Neg); Nitrite, Urine Neg (Neg); Protein, Urine 1+ (Neg); Specific Gravity, Urine 1.025 (1.003-1.022); Urobilinogen, Urine 1+ (Normal)
[2020-07-30 09:38] LABS: Appearance, Urine Clear (Clear); Color, Urine Yellow (P-Yellow)
[2020-07-30 09:40] LABS: Bacteria Few /hpf; Calcium Oxalate Crystals Mod /hpf; Mucus Mod (0-Heavy); Squamous Epithelial Cells Not Seen /hpf (Few)
== END 2020-07-30 10:59 | disposition home or self-care (01) ==
LOC: ER 07:36
PROVIDERS: Emergency Medicine
DX: K85.90 Acute pancreatitis without necrosis or infection, unspecified (principal); Z88.0 Allergy status to penicillin; Z88.8 Allergy status to other drugs, medicaments and biological substances; Z79.899 Other long term (current) drug therapy; Z87.891 Personal history of nicotine dependence
CPT/HCPCS: 36415; 76705; 80053; 81001; 83690; 85025; 85610; 85730; 87086; 96374; 96375; 99284-25; J1170; J1885; J2405

== ENCOUNTER → 2020-10-24 | Outpatient (CLI) | payer MEDICARE ==
[2020-10-27 04:08] LABS: CHLAMYDIA TRACHOMATIS, NAA Negative (Negative)
== END | disposition home or self-care (01) ==
LOC: LAB SHORT 15:30 → LAB 15:30
PROVIDERS: Nurse Practitioner Family
DX: R10.2 Pelvic and perineal pain (principal)
CPT/HCPCS: 87491; 87591

== ENCOUNTER 2021-01-25 12:36 | Emergency (ER) | payer OTHER, MEDICARE ==
[~2021-01-25] VITALS: Ht 172.7 cm; Wt 86.2 kg
== END 2021-01-25 13:54 | disposition home or self-care (01) ==
LOC: ER 12:36
DX: S16.1XXA Strain of muscle, fascia and tendon at neck level, initial encounter (principal); S20.214A Contusion of middle front wall of thorax, initial encounter; S60.511A Abrasion of right hand, initial encounter; I10 Essential (primary) hypertension; G43.909 Migraine, unspecified, not intractable, without status migrainosus; G40.909 Epilepsy, unspecified, not intractable, without status epilepticus; Z88.0 Allergy status to penicillin; Z88.8 Allergy status to other drugs, medicaments and biological substances; Z79.899 Other long term (current) drug therapy; V49.40XA Driver injured in collision with unspecified motor vehicles in traffic accident, initial encounter
CPT/HCPCS: 71046; 72040; 99284-25

== ENCOUNTER 2021-04-05 21:25 | Emergency (ER) | payer OTHER, MEDICARE ==
[~2021-04-05] VITALS: Ht 172.7 cm; Wt 90.7 kg
[2021-04-05 21:59] LABS: BASOPHILS ABSOLUTE AUTO 0.04 K/mm3 (0.00-0.23); BASOPHILS PERCENT AUTO 0 % (0-2); EOSINOPHILS ABSOLUTE AUTO 0.05 K/mm3 (0.00-0.68); EOSINOPHILS PERCENT AUTO 0 % (0-6); Hematocrit 47.3 % (37.0-53.0); Hemoglobin 16.4 g/dL (13.5-17.5); IMMATURE GRAN ABSOLUTE AUTO 0.04 K/mm3 (0.00-0.10); IMMATURE GRAN PERCENT AUTO 0 % (0-1); LYMPHOCYTES PERCENT AUTO 11 % (21-46); MONOCYTES ABSOLUTE AUTO 0.62 K/mm3 (0.16-1.47); MONOCYTES PERCENT AUTO 5 % (4-13); Mean Corpuscular HGB Conc 34.7 g/dL (31.5-36.5); Mean Corpuscular Volume 92 fL (80-100); Mean Platelet Volume 9.2 fL (9.1-12.4); NEUTROPHILS ABSOLUTE AUTO 11.55 K/mm3 (1.96-9.15); NEUTROPHILS PERCENT AUTO 84 % (41-73); Platelet Count 264 K/mm3 (150-400); RDW Standard Deviation 41.3 fL (35.1-46.3); Red Blood Cell Count 5.12 M/mm3 (4.30-5.90)
[2021-04-05 22:20] LABS: Alanine Aminotransfer (ALT/SGP 42 U/L (12-78); Albumin/Globulin Ratio 0.9 (0.8-1.8); Alk Phos 71 U/L (50-136); Anion Gap 11 mmol/L (6-16); Aspartate Aminotrans (AST/SGOT 35 U/L (12-37); Bilirubin, Total 0.6 mg/dL (0.1-1.0); Blood Urea Nitrogen 17 mg/dL (8-24); CO2, Blood 22 mmol/L (21-32); Calcium, Blood 9.8 mg/dL (8.5-10.1); Chloride, Blood 106 mmol/L (98-108); Globulin, Blood 4.3 g/dL (2.2-4.0); Glomerular Filtration Rate >60 (60-); Glucose, Blood 131 mg/dL (70-99); Potassium, Blood 4.6 mmol/L (3.5-5.5); Sodium, Blood 139 mmol/L (136-145); Total Protein, Blood 8.3 g/dL (6.4-8.2)
== END 2021-04-05 23:15 | disposition left against medical advice (07) ==
LOC: ER 21:25
PROVIDERS: Physician Assistant
DX: R10.31 Right lower quadrant pain (principal); R10.32 Left lower quadrant pain; R11.2 Nausea with vomiting, unspecified; G40.909 Epilepsy, unspecified, not intractable, without status epilepticus; G43.909 Migraine, unspecified, not intractable, without status migrainosus; I10 Essential (primary) hypertension; Z87.891 Personal history of nicotine dependence; Z88.1 Allergy status to other antibiotic agents; Z79.899 Other long term (current) drug therapy; Z88.8 Allergy status to other drugs, medicaments and biological substances
CPT/HCPCS: 80053; 83690; 85025; 96374; 99284-25; J1885; J2405

== ENCOUNTER 2021-12-01 11:20 | Emergency (ER) | payer MEDICARE ==
[~2021-12-01] VITALS: Ht 172.7 cm; Wt 88.5 kg
[~2021-12-01 11:20] MED LIST changes: +CYCL10; +CYCL10 PO; +HYDMOR4; +SILDENAFIL CITR20 M1; +VALTREX
[2021-12-01 12:11] LABS: BASOPHILS ABSOLUTE AUTO 0.03 K/mm3 (0.00-0.23); BASOPHILS PERCENT AUTO 0 % (0-2); EOSINOPHILS ABSOLUTE AUTO 0.04 K/mm3 (0.00-0.68); EOSINOPHILS PERCENT AUTO 0 % (0-6); Hematocrit 46.7 % (37.0-53.0); Hemoglobin 16.4 g/dL (13.5-17.5); IMMATURE GRAN ABSOLUTE AUTO 0.03 K/mm3 (0.00-0.10); IMMATURE GRAN PERCENT AUTO 0 % (0-1); LYMPHOCYTES ABSOLUTE AUTO 1.39 K/mm3 (0.84-5.20); LYMPHOCYTES PERCENT AUTO 12 % (21-46); MONOCYTES ABSOLUTE AUTO 0.42 K/mm3 (0.16-1.47); MONOCYTES PERCENT AUTO 4 % (4-13); Mean Corpuscular HGB Conc 35.1 g/dL (31.5-36.5); Mean Corpuscular Volume 91 fL (80-100); Mean Platelet Volume 9.5 fL (9.1-12.4); NEUTROPHILS ABSOLUTE AUTO 9.33 K/mm3 (1.96-9.15); NEUTROPHILS PERCENT AUTO 83 % (41-73); Platelet Count 254 K/mm3 (150-400); RDW Coefficient Variation 12.2 % (11.7-14.2); RDW Standard Deviation 41.1 fL (35.1-46.3); Red Blood Cell Count 5.13 M/mm3 (4.30-5.90); White Blood Cell Count 11.24 K/mm3 (4.00-11.30)
[2021-12-01 12:22] LABS: Albumin/Globulin Ratio 1.1 (0.8-1.8); Bilirubin, Total 0.5 mg/dL (0.1-1.0); Bun/Creatinine Ratio 18.2 (12.0-20.0); Calcium, Blood 9.4 mg/dL (8.5-10.1); Creatinine, Blood 0.88 mg/dL (0.60-1.20); Globulin, Blood 3.6 g/dL (2.2-4.0); Potassium, Blood 3.8 mmol/L (3.5-5.5); Total Protein, Blood 7.6 g/dL (6.4-8.2)
[2021-12-01 13:23] LABS: Source, Urine Clean Catch
[2021-12-01 13:38] LABS: Appearance, Urine Clear (Clear); Bilirubin, Urine Neg (Neg); Blood, Urine 1+ (Neg); Color, Urine Yellow (P-Yellow); Glucose Qualitative, Urine Neg (Neg); Ketones, Urine 2+ (Neg); Leukocyte Esterase, Urine Neg (Neg); Nitrite, Urine Neg (Neg); Protein, Urine 1+ (Neg); Specific Gravity, Urine 1.015 (1.003-1.022); Urobilinogen, Urine NORM (Normal); pH, Urine 6.5 (5.0-8.0)
[2021-12-01 14:12] LABS: Bacteria Few /hpf; Squamous Epithelial Cells Rare /hpf (Few)
[2021-12-01 14:13] LABS: Hyaline Casts 0-2 /lpf (0-2); Mucus Light (0-Heavy)
== END 2021-12-01 16:53 | disposition home or self-care (01) ==
LOC: ER 11:20
PROVIDERS: Emergency Medicine
DX: R10.12 Left upper quadrant pain (principal); R07.9 Chest pain, unspecified; R11.2 Nausea with vomiting, unspecified; I10 Essential (primary) hypertension; Z88.0 Allergy status to penicillin; Z88.8 Allergy status to other drugs, medicaments and biological substances; Z79.899 Other long term (current) drug therapy
CPT/HCPCS: 76770; 80053; 81001; 83690; 84484; 85025; J1790; J7030

== ENCOUNTER 2023-04-03 12:01 | Emergency (ER) | payer MEDICARE ==
[~2023-04-03] VITALS: Ht 172.7 cm; Wt 90.7 kg
[~2023-04-03 12:01] MED LIST changes: +ONDA4ODT SL
[2023-04-03] MEDS ORDERED: LOSA25 PO (12:20)
[2023-04-03 12:33] LABS: BASOPHILS ABSOLUTE AUTO 0.04 K/mm3 (0.00-0.23); BASOPHILS PERCENT AUTO 0 % (0-2); EOSINOPHILS ABSOLUTE AUTO 0.05 K/mm3 (0.00-0.68); EOSINOPHILS PERCENT AUTO 1 % (0-6); Hematocrit 47.6 % (37.0-53.0); Hemoglobin 16.5 g/dL (13.5-17.5); IMMATURE GRAN ABSOLUTE AUTO 0.01 K/mm3 (0.00-0.10); IMMATURE GRAN PERCENT AUTO 0 % (0-1); LYMPHOCYTES ABSOLUTE AUTO 1.14 K/mm3 (0.84-5.20); LYMPHOCYTES PERCENT AUTO 10 % (21-46); MONOCYTES ABSOLUTE AUTO 0.35 K/mm3 (0.16-1.47); MONOCYTES PERCENT AUTO 3 % (4-13); Mean Corpuscular HGB 32.3 pg (26.0-34.0); Mean Corpuscular HGB Conc 34.7 g/dL (31.5-36.5); Mean Corpuscular Volume 93 fL (80-100); NEUTROPHILS ABSOLUTE AUTO 9.39 K/mm3 (1.96-9.15); NEUTROPHILS PERCENT AUTO 85 % (41-73); Platelet Count 257 K/mm3 (150-400); RDW Coefficient Variation 12.4 % (11.7-14.2); RDW Standard Deviation 42.7 fL (35.1-46.3); Red Blood Cell Count 5.11 M/mm3 (4.30-5.90); White Blood Cell Count 10.98 K/mm3 (4.00-11.30)
[2023-04-03 13:07] LABS: Albumin, Blood 3.8 g/dL (3.4-5.0); Bilirubin, Total 0.6 mg/dL (0.1-1.0); Bun/Creatinine Ratio 19.1 (12.0-20.0); Calcium, Blood 9.3 mg/dL (8.5-10.1); Creatinine, Blood 0.94 mg/dL (0.60-1.20); Potassium, Blood 4.7 mmol/L (3.5-5.5); Total Protein, Blood 7.8 g/dL (6.4-8.2)
[2023-04-03] MEDS ORDERED: ONDA4ODT MM (13:48)
[2023-04-03] MEDS ORDERED: Norco 10-325 T1 EACH PO (13:48)
[2023-04-03] MEDS ORDERED: Flomax0.4 MG PO (13:48)
[2023-04-03] MEDS ORDERED: Norco 5-325 Ta1 EACH PO (13:49)
[2023-04-03 15:00] VITALS: BP 156/90
== END 2023-04-03 15:17 | disposition home or self-care (01) ==
LOC: ER 12:01
PROVIDERS: Emergency Medicine
DX: N23 Unspecified renal colic (principal); R11.2 Nausea with vomiting, unspecified; G40.909 Epilepsy, unspecified, not intractable, without status epilepticus; G43.909 Migraine, unspecified, not intractable, without status migrainosus; I10 Essential (primary) hypertension; Z88.0 Allergy status to penicillin; Z88.8 Allergy status to other drugs, medicaments and biological substances; Z79.899 Other long term (current) drug therapy
CPT/HCPCS: 76770; 80053; 81000; 83690; 85025; 96361; 96374; 96375; 99285-25; A9270; J1170; J1630; J2405; J7030

== ENCOUNTER 2023-05-07 07:23 | Day surgery (SDC) | payer MEDICARE ==
[~2023-05-07] VITALS: Ht 172.7 cm; Wt 90.9 kg
[~2023-05-07 07:23] MED LIST changes: +LOSA25 PO; +Norco 10-325 T1 EACH PO; +TAMS.4ER PO; +TRAM50 PO; -VALTREX; +VALTREX PO
[2023-05-07 11:00] VITALS: BP 129/87
--- NOTE | 2023-05-07 11:01 | NUR ---
05/07/23 1101 Angie Holden IV DC'D, CATH INTACT. PT TOLERATED WELL. GAUZE/COBAN IN PLACE
== END 2023-05-07 11:01 | disposition home or self-care (01) ==
LOC: ORSCSDS 07:23
PROVIDERS: Internal Medicine Gastroenterology
PROC: 0DBK8ZX Excision of Ascending Colon, Via Natural or Artificial Opening Endoscopic, Diagnostic (ICD-10-PCS; principal; 2023-05-07 09:45)
PROC: 0DBM8ZX Excision of Descending Colon, Via Natural or Artificial Opening Endoscopic, Diagnostic (ICD-10-PCS; principal; 2023-05-07 09:45)
PROC: 0DBH8ZX Excision of Cecum, Via Natural or Artificial Opening Endoscopic, Diagnostic (ICD-10-PCS; principal; 2023-05-07 09:45)
PROC: 0DBL8ZX Excision of Transverse Colon, Via Natural or Artificial Opening Endoscopic, Diagnostic (ICD-10-PCS; principal; 2023-05-07 09:45)
PROC: 0DBN8ZX Excision of Sigmoid Colon, Via Natural or Artificial Opening Endoscopic, Diagnostic (ICD-10-PCS; principal; 2023-05-07 09:45)
PROC: 0DB68ZX Excision of Stomach, Via Natural or Artificial Opening Endoscopic, Diagnostic (ICD-10-PCS; 2023-05-07 09:45)
PROC: 0DB98ZX Excision of Duodenum, Via Natural or Artificial Opening Endoscopic, Diagnostic (ICD-10-PCS; 2023-05-07 09:45)
DX: R10.32 Left lower quadrant pain (principal); R11.2 Nausea with vomiting, unspecified; D12.0 Benign neoplasm of cecum; D12.2 Benign neoplasm of ascending colon; D12.3 Benign neoplasm of transverse colon; D12.4 Benign neoplasm of descending colon; K63.5 Polyp of colon; I10 Essential (primary) hypertension; F31.9 Bipolar disorder, unspecified; N28.9 Disorder of kidney and ureter, unspecified; Z68.31 Body mass index [BMI] 31.0-31.9, adult; R56.9 Unspecified convulsions; Z79.899 Other long term (current) drug therapy
CPT/HCPCS: 88305; 88342; J2704; J7120

== ENCOUNTER 2024-02-13 11:35 | Emergency (ER) | payer MEDICARE ==
[~2024-02-13] VITALS: Ht 170.2 cm; Wt 90.7 kg
[2024-02-13 12:10] LABS: BASOPHILS ABSOLUTE AUTO 0.07 K/mm3 (0.00-0.23); BASOPHILS PERCENT AUTO 1 % (0-2); EOSINOPHILS ABSOLUTE AUTO 0.03 K/mm3 (0.00-0.68); EOSINOPHILS PERCENT AUTO 0 % (0-6); Hematocrit 45.8 % (37.0-53.0); Hemoglobin 16.3 g/dL (13.5-17.5); IMMATURE GRAN ABSOLUTE AUTO 0.04 K/mm3 (0.00-0.10); IMMATURE GRAN PERCENT AUTO 0 % (0-1); LYMPHOCYTES ABSOLUTE AUTO 2.32 K/mm3 (0.84-5.20); LYMPHOCYTES PERCENT AUTO 17 % (21-46); MONOCYTES ABSOLUTE AUTO 0.71 K/mm3 (0.16-1.47); MONOCYTES PERCENT AUTO 5 % (4-13); Mean Corpuscular HGB 32.5 pg (26.0-34.0); Mean Corpuscular HGB Conc 35.6 g/dL (31.5-36.5); Mean Corpuscular Volume 91 fL (80-100); Mean Platelet Volume 9.1 fL (9.1-12.4); NEUTROPHILS ABSOLUTE AUTO 10.23 K/mm3 (1.96-9.15); NEUTROPHILS PERCENT AUTO 76 % (41-73); Platelet Count 302 K/mm3 (150-400); RDW Coefficient Variation 12.6 % (11.7-14.2); RDW Standard Deviation 41.5 fL (35.1-46.3); Red Blood Cell Count 5.02 M/mm3 (4.30-5.90)
[2024-02-13] MEDS ORDERED: Morphine Sulfate 4 MG/1 ML Injection IV ONE (12:30)
[2024-02-13] MEDS ORDERED: Ondansetron HCl 2 MG / ML 2ML Vial IV ONE (12:30)
[2024-02-13 12:36] LABS: Albumin, Blood 3.9 g/dL (3.4-5.0); Bilirubin, Total 0.3 mg/dL (0.1-1.0); Bun/Creatinine Ratio 16.2 (12.0-20.0); Calcium, Blood 9.1 mg/dL (8.5-10.1); Creatinine, Blood 0.87 mg/dL (0.60-1.20); Globulin, Blood 3.9 g/dL (2.2-4.0); Potassium, Blood 3.9 mmol/L (3.5-5.5); Total Protein, Blood 7.8 g/dL (6.4-8.2)
[2024-02-13] MEDS ORDERED: NS 1,000 ML IV ONE (12:36)
[2024-02-13] MEDS ORDERED: NS 1,000 ML IV SCH (12:40)
[2024-02-13] MEDS ORDERED: HYDROmorphone HCl/Pf 1MG SYR IV ONE (14:35)
[2024-02-13] MEDS ORDERED: LORazepam 2 MG/ML 1ML Injection IV ONE (14:35)
[2024-02-13] MEDS ORDERED: Lidocaine 4% 1 Patch TOP ONE (14:35)
[2024-02-13 16:25] LABS: Source, Urine Clean Catch
[2024-02-13 16:27] LABS: Appearance, Urine Clear (Clear); Bilirubin, Urine Neg (Neg); Blood, Urine 3+ (Neg); Color, Urine Yellow (P-Yellow); Glucose Qualitative, Urine Neg (Neg); Ketones, Urine 3+ (Neg); Leukocyte Esterase, Urine Neg (Neg); Nitrite, Urine Neg (Neg); Protein, Urine 1+ (Neg); Urobilinogen, Urine NORM (Normal)
[2024-02-13 16:37] LABS: Bacteria Rare /hpf; Squamous Epithelial Cells Not Seen /hpf (Few); White Blood Cells, Urine 0-2 /hpf (0-5)
[2024-02-13 16:41] LABS: U Amphetamine Screen Not Detected; U Barbituate Screen Not Detected; U Benzodiazapine Screen Not Detected; U Buprenorphine Screen Not Detected; U Cannabinoids Screen DETECTED; U Cocaine Screen Not Detected; U Methadone Screen Not Detected; U Methamphetamine Screen Not Detected; U Opiates Screen DETECTED; U Oxycodone Screen Not Detected; U Phencyclidine Screen Not Detected
[2024-02-13 16:47] VITALS: BP 151/88
[2024-02-13] MEDS ORDERED: ONDA4ODT MM (23:10)
[2024-02-17 16:55] LABS: 11-NOR-9-CARBOXY-THC,URN,QUANT >500 ng/mL
[2024-02-18 10:57] LABS: 6-ACETYLMORPHINE, URN, QUANT <10 ng/mL; CODEINE, URN, QUANT <20 ng/mL; HYDROCODONE, URN, QUANT <20 ng/mL; HYDROMORPHONE, URN, QUANT 257 ng/mL; MORPHINE, URN, QUANT 481 ng/mL; NORHYDROCODONE, URN, QUANT <20 ng/mL; NOROXYCODONE, URN, QUANT <20 ng/mL; NOROXYMORPHONE, URN, QUANT <20 ng/mL; OXYCODONE, URN, QUANT <20 ng/mL; OXYMORPHONE, URN, QUANT <20 ng/mL
[2024-02-18 17:24] LABS: AMITRIPTYLINE, QUANT, URN <100 ng/mL; AMITRIPTYLINE/NORTRIPTYLIN,URN 247 ng/mL; CLOMIPRAMINE QUANT, URN <200 ng/mL; DESIPRAMINE QUANT, URN <100 ng/mL; DOXEPIN QUANT, URN <100 ng/mL; IMIPRAMINE QUANT, URN <100 ng/mL; NORCLOMIPRAMINE QUANT, URN <200 ng/mL; NORDOXEPIN QUANT, URN <100 ng/mL; NORTRIPTYLINE, QUANT, URN 247 ng/mL; PROTRIPTYLINE QUANT, URN <100 ng/mL
== END 2024-02-13 18:13 | disposition home or self-care (01) ==
LOC: ER 11:35
PROVIDERS: Physician Assistant; Student in an Organized Health Care Education/Training Program
DX: I12.9 Hypertensive chronic kidney disease with stage 1 through stage 4 chronic kidney disease, or unspecified chronic kidney disease (principal); R10.12 Left upper quadrant pain; R10.32 Left lower quadrant pain; I10 Essential (primary) hypertension; G43.909 Migraine, unspecified, not intractable, without status migrainosus; N18.2 Chronic kidney disease, stage 2 (mild); Z88.0 Allergy status to penicillin; Z88.8 Allergy status to other drugs, medicaments and biological substances; Z79.899 Other long term (current) drug therapy
CPT/HCPCS: 71260; 74177; 80053; 81001; 83690; 84484; 85025; 85379; 93005; 93010; 96361; 96374-59; 96375-59; 99283; 99284-25; A9270; G0480; G0481; J1170; J2060; J2270; J2405; J7030; Q9967

== ENCOUNTER 2024-02-13 20:44 | Emergency (ER) | payer MEDICARE ==
[~2024-02-13] VITALS: Ht 175.3 cm; Wt 90.7 kg
[2024-02-13 23:00] VITALS: BP 111/80
[2024-02-13] MEDS ORDERED: Ondansetron 4 MG SoluTab SL ONE (23:10)
[2024-02-13] MEDS ORDERED: ONDA4ODT MM (23:10)
[2024-02-13] MEDS ORDERED: RX Prepack 2 Tabs Ondansetron ODT 4MG UD ONE (23:10)
== END 2024-02-13 23:33 | disposition home or self-care (01) ==
LOC: ER 20:44
DX: R10.32 Left lower quadrant pain (principal); I12.9 Hypertensive chronic kidney disease with stage 1 through stage 4 chronic kidney disease, or unspecified chronic kidney disease; N18.2 Chronic kidney disease, stage 2 (mild); G43.909 Migraine, unspecified, not intractable, without status migrainosus; Z79.899 Other long term (current) drug therapy; Z88.0 Allergy status to penicillin; Z88.8 Allergy status to other drugs, medicaments and biological substances
CPT/HCPCS: 99283; A9270

== ENCOUNTER 2024-04-25 18:51 | Emergency (ER) | payer MEDICARE ==
[~2024-04-25] VITALS: Ht 175.3 cm; Wt 90.7 kg
[2024-04-25 19:35] LABS: BASOPHILS ABSOLUTE AUTO 0.05 K/mm3 (0.00-0.23); BASOPHILS PERCENT AUTO 0 % (0-2); EOSINOPHILS ABSOLUTE AUTO 0.07 K/mm3 (0.00-0.68); EOSINOPHILS PERCENT AUTO 1 % (0-6); Hematocrit 49.3 % (37.0-53.0); Hemoglobin 17.4 g/dL (13.5-17.5); IMMATURE GRAN ABSOLUTE AUTO 0.06 K/mm3 (0.00-0.10); IMMATURE GRAN PERCENT AUTO 0 % (0-1); LYMPHOCYTES ABSOLUTE AUTO 2.61 K/mm3 (0.84-5.20); LYMPHOCYTES PERCENT AUTO 18 % (21-46); MONOCYTES ABSOLUTE AUTO 0.91 K/mm3 (0.16-1.47); MONOCYTES PERCENT AUTO 6 % (4-13); Mean Corpuscular HGB 32.6 pg (26.0-34.0); Mean Corpuscular HGB Conc 35.3 g/dL (31.5-36.5); Mean Corpuscular Volume 92 fL (80-100); Mean Platelet Volume 9.2 fL (9.1-12.4); NEUTROPHILS ABSOLUTE AUTO 10.48 K/mm3 (1.96-9.15); NEUTROPHILS PERCENT AUTO 74 % (41-73); Platelet Count 313 K/mm3 (150-400); RDW Coefficient Variation 12.7 % (11.7-14.2); RDW Standard Deviation 42.8 fL (35.1-46.3); Red Blood Cell Count 5.34 M/mm3 (4.30-5.90); White Blood Cell Count 14.18 K/mm3 (4.00-11.30)
[2024-04-25 19:43] LABS: Albumin, Blood 4.2 g/dL (3.4-5.0); Bilirubin, Total 0.5 mg/dL (0.1-1.0); Calcium, Blood 9.8 mg/dL (8.5-10.1); Creatinine, Blood 1.13 mg/dL (0.60-1.20); Globulin, Blood 4.1 g/dL (2.2-4.0); Total Protein, Blood 8.3 g/dL (6.4-8.2)
[2024-04-25] MEDS ORDERED: Ondansetron HCl 2 MG / ML 2ML Vial IV ONE (19:50)
[2024-04-25] MEDS ORDERED: Lactated Ringer's 1,000 ML IV ONE (22:20)
[2024-04-25] MEDS ORDERED: Droperidol 5 mg/2 ml Vial IV ONE ×2 (22:20→23:10)
[2024-04-26 00:45] LABS: Source, Urine Clean Catch
[2024-04-26 00:48] LABS: Bilirubin, Urine Neg (Neg); Blood, Urine 5+ (Neg); Glucose Qualitative, Urine Neg (Neg); Ketones, Urine 3+ (Neg); Leukocyte Esterase, Urine 1+ (Neg); Nitrite, Urine Neg (Neg); Protein, Urine 2+ (Neg); Urobilinogen, Urine NORM (Normal)
[2024-04-26 00:56] LABS: Appearance, Urine Hazy (Clear)
[2024-04-26 00:57] LABS: Amorphous Heavy (0-Heavy); Bacteria Mod /hpf; Red Blood Cells, Urine 0-2 /hpf (0-2); Squamous Epithelial Cells Rare /hpf (Few)
[2024-04-26] MEDS ORDERED: CefTRIAXone Sodium 1,000 MG in NS 100 ML IV ONE (01:00)
[2024-04-26] MEDS ORDERED: CEPH500 PO (01:09)
[2024-04-26 01:43] VITALS: BP 155/80
== END 2024-04-26 01:43 | disposition home or self-care (01) ==
LOC: ER 18:51
PROVIDERS: Emergency Medicine
DX: N30.00 Acute cystitis without hematuria (principal); N20.0 Calculus of kidney; G40.909 Epilepsy, unspecified, not intractable, without status epilepticus; G43.909 Migraine, unspecified, not intractable, without status migrainosus; I10 Essential (primary) hypertension; Z87.442 Personal history of urinary calculi; Z88.0 Allergy status to penicillin; Z88.8 Allergy status to other drugs, medicaments and biological substances; Z79.899 Other long term (current) drug therapy
CPT/HCPCS: 51798; 74176; 80053; 81001; 83690; 85025; 87086; 96361; 96365; 96375; 96376; 99284-25; J0696; J1790; J2405; J7120

== ENCOUNTER 2024-07-18 03:17 | Observation (INO) | payer MEDICARE ==
[2024-07-18] VITALS (23 sets, daily range): BP systolic 118–169; BP diastolic 87–117
[~2024-07-18] VITALS: Ht 172.7 cm; Wt 92.4 kg
[~2024-07-18 03:17] MED LIST changes: +CEPH500 PO
[2024-07-18] MEDS ORDERED: Morphine Sulfate 4 MG/1 ML Injection IV ONE (03:20)
[2024-07-18] MEDS ORDERED: Ondansetron HCl 2 MG / ML 2ML Vial ONE ×2 (03:22→04:22)
[2024-07-18 03:26] LABS: Chloride (POC) 104 mmol/L (98-108); Creatinine (POC) 1.1 mg/dL (0.8-1.3); Glucose (ISTAT POC) 140 mg/dL (70-99); Hemoglobin (POC) 18.4 g/dL (13.5-17.5); Potassium (POC) 3.8 mmol/L (3.5-5.5); Sodium (POC) 140 mmol/L (135-148); Total CO2 (POC) 24 mmol/L (21-32)
[2024-07-18] MEDS ORDERED: Heparin Sodium 5000 Units/ML 1ML MDV IV ONE (03:30)
[2024-07-18 03:39] LABS: BASOPHILS ABSOLUTE AUTO 0.06 K/mm3 (0.00-0.23); BASOPHILS PERCENT AUTO 0 % (0-2); EOSINOPHILS PERCENT AUTO 1 % (0-6); Hematocrit 51.6 % (37.0-53.0); Hemoglobin 17.7 g/dL (13.5-17.5); IMMATURE GRAN ABSOLUTE AUTO 0.06 K/mm3 (0.00-0.10); IMMATURE GRAN PERCENT AUTO 0 % (0-1); LYMPHOCYTES ABSOLUTE AUTO 2.02 K/mm3 (0.84-5.20); LYMPHOCYTES PERCENT AUTO 13 % (21-46); MONOCYTES PERCENT AUTO 6 % (4-13); Mean Corpuscular HGB 32.8 pg (26.0-34.0); Mean Corpuscular HGB Conc 34.3 g/dL (31.5-36.5); Mean Corpuscular Volume 96 fL (80-100); Mean Platelet Volume 9.4 fL (9.1-12.4); NEUTROPHILS ABSOLUTE AUTO 12.31 K/mm3 (1.96-9.15); NEUTROPHILS PERCENT AUTO 80 % (41-73); Platelet Count 300 K/mm3 (150-400); RDW Coefficient Variation 12.4 % (11.7-14.2); RDW Standard Deviation 44.2 fL (35.1-46.3); White Blood Cell Count 15.45 K/mm3 (4.00-11.30)
[2024-07-18] MEDS ORDERED: FentaNYL Citrate 50 MCG/ML 2 ML Injection ONE ×2 (03:39→03:47)
[2024-07-18] MEDS ORDERED: FentaNYL Citrate 50 MCG/ML 2 ML Injection IV ONE ×2 (03:40→03:45)
[2024-07-18] MEDS ORDERED: Heparin Sodium 1000 Units/ML 10ML MDV ONE (03:43)
[2024-07-18] MEDS ORDERED: NS 1,000 ML IV ONE (03:43)
[2024-07-18] MEDS ORDERED: NS 250 ML IV ONE (03:43)
[2024-07-18] MEDS ORDERED: Verapamil HCL 2.5 MG/ML 2ML Injection ONE (03:43)
[2024-07-18] MEDS ORDERED: Nitroglycerin 2 MG/20 ML BTL ONE (03:44)
[2024-07-18] MEDS ORDERED: Midazolam HCl 1MG / ML 2ML Vial ONE (03:47)
[2024-07-18 03:50] LABS: Albumin, Blood 4.3 g/dL (3.4-5.0); Albumin/Globulin Ratio 1.1 (0.8-1.8); Bilirubin, Total 0.5 mg/dL (0.1-1.0); Bun/Creatinine Ratio 17.9 (12.0-20.0); Calcium, Blood 9.8 mg/dL (8.5-10.1); Creatinine, Blood 0.95 mg/dL (0.60-1.20); Potassium, Blood 3.9 mmol/L (3.5-5.5); Total Protein, Blood 8.3 g/dL (6.4-8.2)
[2024-07-18] MEDS ORDERED: Tirofiban HCL Monohydrate 3.75 MG/15 ML Vial ONE (03:55)
[2024-07-18] MEDS ORDERED: DiphenhydrAMINE HCl 50 MG/ML 1ML Vial ONE (04:00)
[2024-07-18] MEDS ORDERED: Phenylephrine HCl 100 MCG/ML-NS 10MLSYR (1MG/10ML) ONE (04:25)
[2024-07-18] MEDS ORDERED: Ticagrelor 90 MG TABLET ONE (04:36)
[2024-07-18] MEDS ORDERED: Atropine Sulfate 0.1 MG/ML 10ML SYR ONE (04:48)
[2024-07-18] MEDS ORDERED: Ticagrelor 90 MG TABLET PO ONE (05:10)
[2024-07-18] MEDS ORDERED: NS 1,000 ML IV SCH (05:10)
[2024-07-18] MEDS ORDERED: AMLODIPINE BES2.5 MG PO (05:36)
[2024-07-18] MEDS ORDERED: FentaNYL Citrate 50 MCG/ML 2 ML Injection IV PRN (06:15)
[2024-07-18] MEDS ORDERED: Ondansetron HCl 2 MG / ML 2ML Vial IV PRN (06:25)
[2024-07-18] MEDS ORDERED: FLU VACC TS2024-25(6MOS UP)/PF 45 MCG/0.5 ML SYRINGE IM SCH (06:25)
--- NOTE | 2024-07-18 06:58 | NUR ---
PT ADMITTED TO UNIT AT 0518 FROM [facility] PT IS AOX4 AND ANSWERING QUESTIONS APPROPRIATELY. PT C/O 8/10 PAIN TO CHEST AND L. FLANK. STS FLANK PAIN IS CHRONIC. PT RESTLESS ON BED AND MOANING. PT HAS R. RADIAL SITE W/ TR BAND AND ARM BOARD. 11CC IN BAND ON ARRIVAL. SITE IS C/D/I AND NO OOZING OR HEMATOMA OBSERVED. 2CC REMOVED W/ OUT ISSUE. PT ON ROOM AIR W/ CLEAR LUNG SOUNDS. SINUS RATE OF 80S W/ ST ELEVATIONS OBSERVED ON CONTINUOUS NIGHT COORDINATOR. PT BP HYPERTENSIVE W/ SYSTOLICS OF 150S. PT AFEBRILE. TAKES PO MEDICATION W/OUT ISSUE. PT USES URINAL INDEPENDENTLY. DR. LAURENT CONTACTED FOR PAIN MEDICATION. HOSPITALIST CALLED FOR FURTHER ORDERS. PT GIVEN PRN DOSE OF FENTANLY W/ GOOD EFFECT. NS STARTED PER EMAR AT 200ML/HR. PT PROVIDED CALL LIGHT. PLAN OF CARE ONGOING.
[2024-07-18] MEDS ORDERED: Aspirin 81 MG Chew PO SCH (09:00)
[2024-07-18] MEDS ORDERED: LamoTRIgine 100 MG Tab PO SCH (09:00)
[2024-07-18] MEDS ORDERED: Ticagrelor 90 MG TABLET PO SCH (09:00)
[2024-07-18] MEDS ORDERED: Amitriptyline HCl 25 MG Tab PO SCH (09:00)
[2024-07-18] MEDS ORDERED: Enoxaparin 40 MG/0.4 ML SYR SC SCH (09:00)
[2024-07-18] MEDS ORDERED: AmLODIPine Besylate 5 MG Tab PO SCH ×2 (09:00→10:00)
[2024-07-18] MEDS ORDERED: TraMADol HCl 50 MG Tab PO PRN (10:40)
--- NOTE | 2024-07-18 18:25 | NUR ---
DAY SHIFT SUMMARY PT HAS BEEN ALERT AND ORIENTED THIS SHIFT COMMUNICATING APPROPRIATELY W STAFF. PT REPORTING INTERMITTANT CHEST AND ABDOMINAL PAIN T/O THE SHIFT WHICH HAS BEEN RELIEVED W IV FENTANYL. PT RESTRATED ON HOME TRAMADOL THIS SHIFT WELL. PT HAS EITHER BEEN SLEEPING COMFORTABLY OR AWAKE REPORTING SEVERE PAIN FOR MOST OF THE SHIFT. PT CURRENTLY SITTING IN BED APPEARING COMFORTABLE W HIS DAUGHTERS AT THE BEDSIDE. PT TAKEN TO CT SCAN FOR HIS ABDOMEN THIS SHIFT. PT'S MONITOR SHOWING SR/ST 90'S-100'S THIS SHIFT W ST ELEVATION WHICH HAS IMPROVED T/O THE SHIFT. PT BP STABLE THIS SHIFT. PT MAINTAINING SPO2 >94% ON RM AIR. PT AFEBRILE THIS SHIFT. PT REPORTING NAUSEA THIS SHIFT BUT NO EMESIS. PT VOIDING WELL. PT W POOR PO INTAKE THIS SHIFT NOT WANTING TO EAT MUCH OF HIS MEALS. PT HAS BEEN ASKING ABOUT HIS CELL PHONE T/O THE SHIFT AND ER AND VEHICLE FARE COLLECTOR BOTH CONTACTED BUT NEITHER HAD HIS PHONE. ATTEMPTS MADE TO CALL PT'S PHONE WHICH RINGS BUT CANNOT BE HEARD IN THE RM AND NO ONE ANSWERS. PT'S DAUGHTER ENCOURAGED TO SEE IF PT'S CELL PHONE IS STILL AT HIS HOUSE. PT'S R RADIAL SITE IS C/D/I W NO S/S OF HEMATOMA.
[2024-07-18 21:17] LABS: U Amphetamine Screen Not Detected; U Barbituate Screen Not Detected; U Benzodiazapine Screen Not Detected; U Buprenorphine Screen Not Detected; U Cannabinoids Screen DETECTED; U Cocaine Screen Not Detected; U Methadone Screen Not Detected; U Methamphetamine Screen Not Detected; U Opiates Screen DETECTED; U Oxycodone Screen Not Detected; U Phencyclidine Screen Not Detected
[2024-07-18] MEDS ORDERED: Amitriptyline HCl 10 MG Tab PO ONE (23:50)
[2024-07-19] VITALS (14 sets, daily range): BP systolic 109–165; BP diastolic 77–120
[2024-07-19 04:02] LABS: BASOPHILS ABSOLUTE AUTO 0.03 K/mm3 (0.00-0.23); BASOPHILS PERCENT AUTO 0 % (0-2); EOSINOPHILS ABSOLUTE AUTO 0.02 K/mm3 (0.00-0.68); EOSINOPHILS PERCENT AUTO 0 % (0-6); Hematocrit 50.3 % (37.0-53.0); Hemoglobin 17.3 g/dL (13.5-17.5); IMMATURE GRAN ABSOLUTE AUTO 0.06 K/mm3 (0.00-0.10); IMMATURE GRAN PERCENT AUTO 0 % (0-1); LYMPHOCYTES ABSOLUTE AUTO 1.93 K/mm3 (0.84-5.20); LYMPHOCYTES PERCENT AUTO 14 % (21-46); MONOCYTES PERCENT AUTO 9 % (4-13); Mean Corpuscular HGB 32.5 pg (26.0-34.0); Mean Corpuscular HGB Conc 34.4 g/dL (31.5-36.5); Mean Corpuscular Volume 95 fL (80-100); Mean Platelet Volume 9.2 fL (9.1-12.4); NEUTROPHILS ABSOLUTE AUTO 10.77 K/mm3 (1.96-9.15); NEUTROPHILS PERCENT AUTO 77 % (41-73); Platelet Count 216 K/mm3 (150-400); RDW Coefficient Variation 12.7 % (11.7-14.2); RDW Standard Deviation 44.7 fL (35.1-46.3); Red Blood Cell Count 5.32 M/mm3 (4.30-5.90); White Blood Cell Count 14.01 K/mm3 (4.00-11.30)
[2024-07-19 04:25] LABS: Albumin, Blood 3.5 g/dL (3.4-5.0); Albumin/Globulin Ratio 0.9 (0.8-1.8); Bun/Creatinine Ratio 19.4 (12.0-20.0); Calcium, Blood 9.1 mg/dL (8.5-10.1); Creatinine, Blood 0.77 mg/dL (0.60-1.20); Globulin, Blood 4.1 g/dL (2.2-4.0); Potassium, Blood 3.9 mmol/L (3.5-5.5); Total Protein, Blood 7.6 g/dL (6.4-8.2)
--- NOTE | 2024-07-19 04:38 | NUR ---
SHIFT SUMMARY PT HAS TOLERATED SHIFT WELL WITH NO CHANGES TO STATUS. PTS ISSUE CONTINUES TO BE PAIN MANAGEMENT OVER THE COURSE OF THIS SHIFT. PT INTERMITTENTLY HAD PAIN IN THE 6-7/10 RANGE AND REQUIRED DOSES OF FENTANYL PUSHES. PT ALSO REQUESTED MEDICATION TO ASSIST WITH SLEEP WHICH HAS SEEMED TO HELP SOMEWHAT THIS EVENING. PT IS A&O X 4. ABLE TO MOVE ALL EXTREMETIES AND HAS BEEN INDEPENDENT IN REPOSITIONING SELF. PTS HEART RATE HAS BEEN NORMAL SINUS RHYTHM TO SINUS TACH THROUGH SHIFT. TR BAND SITE IN R RADIAL HAS REMAINED WITHIN NORMAL LIMITS AND BLOOD PRESSURE HAS STAYED IN NORMAL RANGES. PTS LUNG SOUNDS ARE CLEAR AND DIM AND IS ON ROOM AIR. PT HAS NOT HAD BOWEL MOVEMENT THROUGH COURSE OF THIS SHIFT. PT HAS BEEN ABLE TO URINATE ON THEIR OWN WITHOUT ISSUE. IV SITES REMAIN SALINE LOCKED AND PATENT. WILL CONTINUE TO MONITOR UNTIL REPORT PASSED TO DAY SHIFT TEAM.
--- NOTE | 2024-07-19 12:11 | NUR ---
THIS RN ASSUMED CARE OF PT AT 0700. PT IS ALERT AND ORIENTED X4, CALLS APPROPRIATELY. PT HEART RATE IN THE 100s, SLIGHT ST ELEVATION, PT DENIES CHEST PAIN UPON ASSESSMENT, BLOOD PRESSURE STABLE AT 129/93 MAP OF 105. PT IS ON ROOM AIR SATTING >95%, PT DENIES SHORTNESS OF BREATH SOUNDS CLEAR. PT IS ABLE TO VOID PER URINAL. PT WANTED SOME OUTSIDE RESOURCES, CASE MANAGEMENT WAS CALLED AND PROVIDED PT WITH RESOURCES TO USE. PT HAS CHRONIC PAIN DUE TO ACCIDENTS IN THE PAST, PT SAID THEY MANAGE OUTPATIENT WITH A PAIN SPECIALIST DOCTOR. NO OTHER INTERVENTIONS AT THIS TIME. PLAN OF CARE CONTINUED.
[2024-07-19] MEDS ORDERED: TICA90TA PO (14:08)
[2024-07-19] MEDS ORDERED: ASPI81CH PO (14:08)
[2024-07-19] MEDS ORDERED: AMLO10 PO (14:10)
[2024-07-19] MEDS ORDERED: CARV6.25 PO (14:11)
[2024-07-19] MEDS ORDERED: OMEP20ER PO (14:13)
--- NOTE | 2024-07-19 16:09 | NUR ---
DISCHARGE MOST RX'S SENT VIA FAX TO [facility], BUT THEY DID NOT HAVE BRILENTA. CALLS MADE TO [facility] WHO ALSO DID NOT HAVE RX, BUT [facility] DID. RX FAXED TO [facility] AND VERIFIED THEY OBTAINED THE FAX. PT PROVIDED COUPON FOR MEDICATION. DISCHARGE INSTRUCTIONS REVIEWED AND GIVEN TO PATIENT INCLUDING F/U WITH CADIOLOGY AND PRIMARY PROVIDER. DTR PRESENT FOR DISCHARGE INSTRUCTIONS; COPIES SENT HOME WITH PT. IVS X 2 DISCONTINUED AND ESCORTED OUT VIA WC.
== END 2024-07-19 16:00 | disposition home or self-care (01) ==
LOC: ER 03:17 → ICUE 03:18 → ER 03:38 → ICUE 03:38
PROVIDERS: Family Medicine; Internal Medicine; Student in an Organized Health Care Education/Training Program; ADMIT Internal Medicine Interventional Cardiology
DX: I21.09 ST elevation (STEMI) myocardial infarction involving other coronary artery of anterior wall (principal); G89.4 Chronic pain syndrome; F31.9 Bipolar disorder, unspecified; I12.9 Hypertensive chronic kidney disease with stage 1 through stage 4 chronic kidney disease, or unspecified chronic kidney disease; N18.2 Chronic kidney disease, stage 2 (mild); G40.909 Epilepsy, unspecified, not intractable, without status epilepticus; G43.909 Migraine, unspecified, not intractable, without status migrainosus; Z79.82 Long term (current) use of aspirin; Z79.899 Other long term (current) drug therapy; Z88.1 Allergy status to other antibiotic agents
CPT/HCPCS: 36415; 71045; 74150; 76937; 80047; 80053; 84484; 85014; 85025; 92941; 93005; 93010; 93454; 96372; 96374; 96375; 96376; 99152; 99153; 99285-25; A9270; C1725; C1769; C1874; C1887; C1894; C8929; C9600; C9601; C9606; G0378; J0461; J1200; J1644; J1650; J2250; J2270; J2371; J2405; J3010; J3246; J7030; J7050; Q9957; Q9967

== ENCOUNTER 2025-01-29 07:14 | Emergency (ER) | payer MEDICARE ==
[~2025-01-29] VITALS: Ht 172.7 cm; Wt 93.0 kg
[~2025-01-29 07:14] MED LIST changes: +AMLO10 PO; +AMLODIPINE BES2.5 MG PO; +ASPI81CH PO; +CARV6.25 PO; +OMEP20ER PO; +TICA90TA PO
[2025-01-29] MEDS ORDERED: FentaNYL Citrate 50 MCG/ML 2 ML Injection IV ONE (07:20)
[2025-01-29] MEDS ORDERED: Ondansetron HCl 2 MG / ML 2ML Vial IV ONE (07:20)
[2025-01-29] MEDS ORDERED: DiphenhydrAMINE HCl 50 MG/ML 1ML Vial ONE (07:44)
[2025-01-29] MEDS ORDERED: Dexamethasone Sod Phos 10 MG/ML 1ML VIAL IV ONE (07:45)
[2025-01-29] MEDS ORDERED: DiphenhydrAMINE HCl 50 MG/ML 1ML Vial IV ONE (07:45)
[2025-01-29] MEDS ORDERED: Dexamethasone Sod Phos 10 MG/ML 1ML VIAL ONE (07:45)
[2025-01-29 08:15] LABS: BASOPHILS ABSOLUTE AUTO 0.04 K/mm3 (0.00-0.23); BASOPHILS PERCENT AUTO 0 % (0-2); EOSINOPHILS ABSOLUTE AUTO 0.05 K/mm3 (0.00-0.68); EOSINOPHILS PERCENT AUTO 1 % (0-6); Hematocrit 43.0 % (37.0-53.0); Hemoglobin 15.3 g/dL (13.5-17.5); IMMATURE GRAN ABSOLUTE AUTO 0.04 K/mm3 (0.00-0.10); IMMATURE GRAN PERCENT AUTO 0 % (0-1); LYMPHOCYTES ABSOLUTE AUTO 1.92 K/mm3 (0.84-5.20); LYMPHOCYTES PERCENT AUTO 20 % (21-46); MONOCYTES ABSOLUTE AUTO 0.47 K/mm3 (0.16-1.47); MONOCYTES PERCENT AUTO 5 % (4-13); Mean Corpuscular HGB Conc 35.6 g/dL (31.5-36.5); Mean Corpuscular Volume 92 fL (80-100); NEUTROPHILS ABSOLUTE AUTO 6.95 K/mm3 (1.96-9.15); NEUTROPHILS PERCENT AUTO 73 % (41-73); NRBC ABSOLUTE 0.00 K/mm3 (0.00-0.02); NRBC Auto 0.0 /100 WBC (0.0-0.2); Platelet Count 310 K/mm3 (150-400); RDW Coefficient Variation 12.6 % (11.7-14.2); RDW Standard Deviation 42.2 fL (35.1-46.3)
[2025-01-29] MEDS ORDERED: NS 1,000 ML IV SCH (08:15)
[2025-01-29 08:41] LABS: Alanine Aminotransfer (ALT/SGP 28.0 U/L (12-78); Albumin, Blood 3.9 g/dL (3.4-5.0); Albumin/Globulin Ratio 1.1 (0.8-1.8); Anion Gap 14.0 mmol/L (3-11); Aspartate Aminotrans (AST/SGOT 20.0 U/L (12-37); Bilirubin, Total 0.3 mg/dL (0.1-1.0); Blood Urea Nitrogen 14.0 mg/dL (8-24); CO2, Blood 21.0 mmol/L (21-32); Calcium, Blood 8.6 mg/dL (8.5-10.1); Chloride, Blood 109.0 mmol/L (98-108); Creatinine, Blood 0.98 mg/dL (0.60-1.20); Ethanol (Alcohol), Blood, Med 127.0 mg/dL; Globulin, Blood 3.5 g/dL (2.2-4.0); Glucose, Blood 124.0 mg/dL (70-99); Potassium, Blood 3.9 mmol/L (3.5-5.5); Sodium, Blood 140.0 mmol/L (136-145); Total Protein, Blood 7.4 g/dL (6.4-8.2)
[2025-01-29] MEDS ORDERED: OxyCODONE 5 mg/Acetamin 325 mg TABLET PO ONE (09:45)
[2025-01-29 10:00] VITALS: BP 181/122
[2025-01-29] MEDS ORDERED: ONDA4ODT MM (10:05)
== END 2025-01-29 10:37 | disposition home or self-care (01) ==
LOC: ER 07:14
PROVIDERS: Emergency Medicine
DX: K85.90 Acute pancreatitis without necrosis or infection, unspecified (principal); F10.129 Alcohol abuse with intoxication, unspecified; K40.90 Unilateral inguinal hernia, without obstruction or gangrene, not specified as recurrent; I25.10 Atherosclerotic heart disease of native coronary artery without angina pectoris; I12.9 Hypertensive chronic kidney disease with stage 1 through stage 4 chronic kidney disease, or unspecified chronic kidney disease; N18.9 Chronic kidney disease, unspecified; Z88.0 Allergy status to penicillin; Z88.8 Allergy status to other drugs, medicaments and biological substances; Z79.82 Long term (current) use of aspirin; Z79.899 Other long term (current) drug therapy
CPT/HCPCS: 74177; 80053; 80320; 83690; 85025; 93005; 93010; 96361; 96374-59; 96375; 99285-25; A9270; J1100; J1200; J1790; J2405; J3010; J7030; Q9967